=== PATIENT | female | born 1930 | race Caucasian/White ===

== ENCOUNTER 2016-03-11 09:38 | Emergency (ER) | payer OTHER, MEDICARE ==
[2016-03-11 09:51] VITALS: BMI 24.2
--- NOTE | 2016-03-11 11:12 | PDOC ---
*Physical Exam - Vital Signs Last Vital Signs Temp Pulse Resp BP Pulse Ox 97.8 F 56 L 18 143/69 100 03/11/16 09:47 03/11/16 09:47 03/11/16 09:47 03/11/16 09:47 03/11/16 09:47 - Physical Exam Comments: 03/11/16 11:11 MIDLEVEL NOTE Pt seen by Midlevel Provider under my direct supervision. Pt interviewed and examined. Ancillary studies reviewed. I agree with plan as outlined by Midlevel Provider. EKG Normal sinus rhythm 53 (sinus bradycardia), normal axis Normal AV and IV conduction time Normal QTC Otherwise normal EKG *DC/Admit/Observation/Transfer Diagnosis at time of Disposition: Internal hemorrhoid, bleeding, External hemorrhoids - Discharge Dispostion Disposition: HOME Condition at time of disposition: Good - Prescriptions Prescriptions: Hydrocortisone Acetate [Anucort-Hc] 25 mg RC TID #15 supp.rect - Referrals Referrals: Jose Altamirano MD [Staff Physician] - - Patient Instructions Printed Discharge Instructions: DI for Hemorrhoids Additional Instructions: Please use medication as prescribed for the next 5 days. Please use moist cough when cleansing self after bowel movement. Stay well- hydrated. Rest, and may use sitz bath at home
[2016-03-11] MEDS ORDERED: LIDOCAINE HCL 2% JELLY 10 ML CARTRIDGE PR ONE (12:01)
[2016-03-11] MEDS ORDERED: LIDOCAINE HCL 2% JELLY 10 ML CARTRIDGE ONE (12:03)
--- NOTE | 2016-03-11 12:14 | PDOC ---
History of Present Illness - General Chief Complaint: Diarrhea Stated Complaint: HEMORRHOIDS, DIARRHEA Time Seen by Provider: 03/11/16 11:07 History Source: Patient Exam Limitations: No Limitations - History of Present Illness Travel History: No Initial Comments: 03/11/16 12:01 85-year-old female presents with 3 episodes of diarrhea without abdominal pain, fever or chills which resolved but when she wiped herself had noted her hemorrhoids to be inflamed and painful. Patient states attempted contacting her PCP Dr. Altamirano but when he did not answer she decided come to the ER since she was and severe pain. Patient states has had hemorrhoidectomy 3 over the past 30 years performed by various surgeons. Patient states uses Preparation H with good effect but felt it wouldn't work this time and needed something stronger. Patient denies abdominal pain, bloody stool, or fever. Timing/Duration: reports: constant Quality: reports: moderate, burning Abdominal Pain Onset Location: reports: other (rectum) Pain Radiation: reports: no radiation Activities at Onset: reports: other (defecation) Aggravating Factors: improves with: Defecation Alleviating Factors: improves with: None Past History - Past Medical History Allergies/Adverse Reactions: Allergies Allergy/AdvReac Type Severity Reaction Status Date / Time Sulfa (Sulfonamide Allergy Nausea Verified 03/11/16 09:46 Antibiotics) Home Medications: Ambulatory Orders Atenolol [Tenormin -] 25 mg PO DAILY 08/02/15 Hydrocortisone Acetate [Anucort-Hc] 25 mg RC TID #15 supp.rect 03/11/16 Zolpidem Tartrate [Ambien] 10 mg PO HS 03/11/16 Anemia: No Asthma: No Cancer: Yes (Ancelmo mastectomy) Cardiac Disorders: No CVA: No COPD: No CHF: No Dementia: No Diabetes: No GI Disorders: No Disorders: No HTN: Yes Hypercholesterolemia: No Liver Disease: No Seizures: No Thyroid Disease: No Other medical history: sciatica - Surgical History Abdominal Surgery: No Appendectomy: Yes Cardiac Surgery: No Cholecystectomy: No Lung Surgery: No Neurologic Surgery: Yes (SPINAL SX) Orthopedic Surgery: No - Reproductive History Is Patient Now?: No - Immunization History Td Vaccination: No Immunization Up to Date: Yes - Psycho/Social/Smoking Cessation Hx Anxiety: No Suicidal Ideation: No Smoking Status: No Smoking History: Never smoked Have you smoked in the past 12 months: No Number of Cigarettes Smoked Daily: 0 If you are a former smoker, when did you quit?: 1973 Information on smoking cessation initiated: No Hx Alcohol Use: No Drug/Substance Use Hx: No Substance Use Type: None Hx Substance Use Treatment: No Patient Lives Alone: Yes Lives with/in: lives alone Abd/GI Specific PMHX - Complaint Specific PMHX Colitis: No GI Ulcer Disease: No Review of Systems - Review of Systems Able to Perform ROS?: Yes Constitutional: No: Symptoms Reported HEENTM: No: Symptoms Reported Respiratory: No: Symptoms reported ABD/GI: Yes: Diarrhea. No: Nausea, Abdominal cramping : No: Symptoms Reported Musculoskeletal: No: Symptoms Reported Integumentary: No: Symptoms Reported Neurological: No: Symptoms reported *Physical Exam - Vital Signs Last Vital Signs Temp Pulse Resp BP Pulse Ox 97.8 F 56 L 18 143/69 100 03/11/16 09:47 03/11/16 09:47 03/11/16 09:47 03/11/16 09:47 03/11/16 09:47 - Physical Exam General Appearance: Yes: Nourished, Appropriately Dressed. No: Apparent Distress HEENT: negative: Pale Conjunctivae Respiratory/Chest: positive: Lungs Clear, Normal Breath Sounds. negative: Respiratory Distress, Accessory Muscle Use Cardiovascular: positive: Regular Rhythm, Regular Rate (62 on monitor). negative: Murmur Vascular Pulses: Dorsalis-Pedis (R): 2+, Doralis-Pedis (L): 2+ Gastrointestinal/Abdominal: positive: Normal Bowel Sounds, Soft. negative: Distended, Tenderness Rectal Exam: positive: normal rectal tone, hemorrhoids (tender internal x 2. Skin tag externally. a small nonthrombosed 1 cm external hemorrhoid at 12:00) Integumentary: positive: Normal Color, Warm, Moist Neurologic: positive: Motor Strength 5/5 (ambulatory) Medical Decision Making - Medical Decision Making 03/11/16 12:05 Patient with recurrent painful hemorrhoids and requesting pain medication. Patient has no thrombosed or bleeding from hemorrhoids but is noted to be excoriated around the anus and hemorrhoids. Patient ordered for lidocaine rectally be discharged home with hydrocortisone acetate suppositories 5 days. *DC/Admit/Observation/Transfer Diagnosis at time of Disposition: Internal hemorrhoid, bleeding, External hemorrhoids - Discharge Dispostion Disposition: HOME Condition at time of disposition: Good - Prescriptions Prescriptions: Hydrocortisone Acetate [Anucort-Hc] 25 mg RC TID #15 supp.rect - Referrals Referrals: Jose Altamirano MD [Staff Physician] - - Patient Instructions Printed Discharge Instructions: DI for Hemorrhoids Additional Instructions: Please use medication as prescribed for the next 5 days. Please use moist cough when cleansing self after bowel movement. Stay well- hydrated. Rest, and may use sitz bath at home
[2016-03-11 13:18] VITALS: BP 117/68; PULSE 80; TEMP 98
--- NOTE | 2016-03-13 23:35 | EKG ---
Test Reason : Blood Pressure : / mmHG Vent. Rate : 053 BPM Atrial Rate : 053 BPM P-R Int : 156 ms QRS Dur : 076 ms QT Int : 434 ms P-R-T Axes : 053 019 059 degrees QTc Int : 407 ms SINUS BRADYCARDIA OTHERWISE NORMAL ECG WHEN COMPARED WITH ECG OF 02-AUG-2015 08:49, VENT. RATE HAS DECREASED BY 28 BPM Confirmed by RETA HORNE MD ([id number]) on 03/13/2016 11:34:59 PM Referred By: Confirmed By:RETA HORNE MD
== END 2016-03-11 13:19 | disposition home or self-care (01) ==
LOC: JER 09:38
DX: K64.8 Other hemorrhoids (principal); K64.4 Residual hemorrhoidal skin tags; I10 Essential (primary) hypertension; Z85.3 Personal history of malignant neoplasm of breast
CPT/HCPCS: 93005; 93010; 99284-25

== ENCOUNTER 2016-03-13 08:13 | Emergency (ER) | payer OTHER, MEDICARE ==
--- NOTE | 2016-03-13 08:42 | PDOC ---
History of Present Illness - General Chief Complaint: Hemorrhoids Stated Complaint: HEMORRHOIDS Time Seen by Provider: 03/13/16 08:27 History Source: Patient Exam Limitations: No Limitations - History of Present Illness Initial Comments: Patient is a 85 year old female with PMH of HTN, Bilateral mastectomy & sciatica who presents to ED with hemorrhoid pain. She was last seen here on Thursday and the pain was alleviated with lidocaine cream. She was sent a prescription for hydrocortisone suppositories but could not afford the medications so she did not pick it up from pharmacy. She presents today with continued pain during defecation, notably during an episode of diarrhea this morning. She also has a mild amount of bright red blood protruding from her rectum. She denies any fever, chills, abdominal pain or tenderness. Past History - Travel Traveled outside of the country in the last 30 days: No Close contact w/someone who was outside of country & ill: No - Past Medical History Allergies/Adverse Reactions: Allergies Allergy/AdvReac Type Severity Reaction Status Date / Time Sulfa (Sulfonamide Allergy Nausea Verified 03/13/16 08:50 Antibiotics) Home Medications: Ambulatory Orders Atenolol [Tenormin -] 25 mg PO DAILY 08/02/15 Zolpidem Tartrate [Ambien] 10 mg PO HS 03/11/16 Hydrocortisone Acetate 28.4 gm TP PRN PRN #1 cream..g. 03/13/16 Anemia: No Asthma: No Cancer: Yes (Ancelmo mastectomy) Cardiac Disorders: No CVA: No COPD: No CHF: No Dementia: No Diabetes: No GI Disorders: No Disorders: No HTN: Yes Hypercholesterolemia: No Liver Disease: No Seizures: No Thyroid Disease: No - Surgical History Abdominal Surgery: No Appendectomy: Yes Cardiac Surgery: No Cholecystectomy: No Lung Surgery: No Neurologic Surgery: Yes (SPINAL SX) Orthopedic Surgery: No - Immunization History Td Vaccination: No Immunization Up to Date: Yes - Psycho/Social/Smoking Cessation Hx Anxiety: No Suicidal Ideation: No Smoking Status: No Smoking History: Never smoked Have you smoked in the past 12 months: No Number of Cigarettes Smoked Daily: 0 If you are a former smoker, when did you quit?: 1974 Hx Alcohol Use: No Drug/Substance Use Hx: No Substance Use Type: None Hx Substance Use Treatment: No Review of Systems - Review of Systems Able to Perform ROS?: Yes Is the patient limited [place] proficient: No ABD/GI: Yes: Abd. Pain w/ defecation, Diarrhea All Other Systems: Reviewed and Negative *Physical Exam - Physical Exam General Appearance: Yes: Nourished, Appropriately Dressed, Apparent Distress HEENT: positive: EOMI, NATAN, Pharynx Normal Neck: positive: Trachea midline, Normal Thyroid, Supple Respiratory/Chest: positive: Lungs Clear, Normal Breath Sounds Cardiovascular: positive: Regular Rhythm, Regular Rate, S1, S2 Gastrointestinal/Abdominal: positive: Normal Bowel Sounds, Flat, Soft Rectal Exam: positive: hemorrhoids (excoriated skin around rectum, large skin tag, 1 large external hemorrhoid (nonthrombosed), internal hemorrhoids exquisitley tender to palpation) Musculoskeletal: positive: Normal Inspection Extremity: positive: Normal Inspection, Normal Range of Motion Integumentary: positive: Normal Color, Dry, Warm Neurologic: positive: Fully Oriented, Alert, Normal Mood/Affect, Motor Strength 06/20 ED Treatment Course - LABORATORY CBC & Chemistry Diagram: 03/13/16 09:10 Medical Decision Making - Medical Decision Making 03/13/16 09:01 Ordered BMP to rule out dehydration given episode of diarrhea this morning. Will apply lidocaine cream to help with pain. [facility] and informed me that her insurance does not cover suppositories but will cover hydrocortisone cream. 03/13/16 09:08 Sent hydrocortisone cream to her pharmacy. Will control patient's pain with lidocaine cream and await results of BMP. 03/13/16 11:03 BMP (-) for signs of dehydration or other lab abnormalities. Patient's pain has improved and she understands how to apply hydrocortisone cream we went to her pharmacy. I made an appointment for her with Dr Medrano on ThursdayMarch 18 at 330PM for evaluation of her hemorrhoids. Patient understands proposed course of treatment and, when offered, refused VNS help with applying her medication at home. *DC/Admit/Observation/Transfer Diagnosis at time of Disposition: Internal hemorrhoid, bleeding, External hemorrhoids - Discharge Dispostion Disposition: HOME Condition at time of disposition: Improved Admit: No - Prescriptions Prescriptions: Hydrocortisone Acetate 28.4 gm TP PRN PRN #1 cream..g. PRN Reason: Pain - Referrals Referrals: Jose Altamirano MD [Primary Care Provider] - Giorgi Medrano MD [Staff Physician] - 03/18/16 - Patient Instructions Printed Discharge Instructions: DI for Hemorrhoids Additional Instructions: I made an appointment for you at Dr Medrano's office next March 18 at 3:30PM. His office is at [address] [place] [address] on the second floor. Apply hydrocortisone cream at home after wiping your rectum after every bowel movement. If pain becomes worse or fever, chills, worsening diarrhea occur, return to ED.
[2016-03-13 08:50] VITALS: TEMP 99; BMI 23.4
[2016-03-13] MEDS ORDERED: LIDOCAINE HCL 2% JELLY (30 ML/TUBE) TP ONE (09:03)
[2016-03-13 09:41] LABS: CALCIUM 8.5 mg/dL (8.5-10.1); CREATININE 0.8 mg/dL (0.55-1.02)
[2016-03-13] MEDS ORDERED: LIDOCAINE HCL 2% JELLY (5 ML/TUBE) ONE (10:10)
[2016-03-13 13:00] VITALS: BP 140/77; PULSE 60
== END 2016-03-13 13:25 | disposition home or self-care (01) ==
LOC: JER 08:13
DX: K64.8 Other hemorrhoids (principal); K64.4 Residual hemorrhoidal skin tags; I10 Essential (primary) hypertension; Z85.3 Personal history of malignant neoplasm of breast
CPT/HCPCS: 36415; 80048; 99282-25

== ENCOUNTER 2017-01-22 10:43 | Emergency (ER) | payer OTHER, MEDICARE ==
[2017-01-22] MEDS ORDERED: IBUPROFEN 400 MG TABLET (FP) PO ONE ×2 (11:15→11:32)
[2017-01-22 11:24] VITALS: BP 102/58; PULSE 73; TEMP 98.2; BMI 24.3
--- NOTE | 2017-01-22 11:46 | PDOC ---
History of Present Illness - General Chief Complaint: Pain Stated Complaint: LEFT SHOULDER PAIN Time Seen by Provider: 01/22/17 11:15 History Source: Patient, Old Records Exam Limitations: No Limitations - History of Present Illness Initial Comments: 01/22/17 11:39 86-year-old female with past medical history notable for chronic left shoulder pain under management of orthopedist Dr. Jo presents with acute on chronic left shoulder pain. The patient has had pain for over a year which she has been intermittently receiving hydrocortisone injections of left shoulder. Last injection was in November 2016. Last week, the patient was attempting to catch 10 -15 pound box that was sliding from her door. She had caught the box but felt the strain in her left shoulder. Denies any numbness or weakness but stated that Tylenol has not been improving the pain. Because of the persistence of symptoms, patient had came into the ED for an evaluation. Past History - Past Medical History Allergies/Adverse Reactions: Allergies Allergy/AdvReac Type Severity Reaction Status Date / Time egg Allergy Verified 12/20/16 09:18 Sulfa (Sulfonamide Allergy Nausea Verified 12/20/16 09:17 Antibiotics) Home Medications: Ambulatory Orders Atenolol [Tenormin -] 25 mg PO DAILY 08/02/15 Zolpidem Tartrate [Ambien] 10 mg PO HS 03/11/16 Aspirin [ASA -] 81 mg PO DAILY 01/22/17 Benazepril HCl 5 mg PO DAILY 01/22/17 Cyanocobalamin [Vitamin B12 -] 1,000 mcg PO DAILY 01/22/17 Ibuprofen 400 mg PO Q8H PRN #15 tablet 01/22/17 Pantoprazole Sodium [Protonix] 40 mg PO DAILY #7 tablet. 01/22/17 Prednisone [Deltasone -] 20 mg PO DAILY #4 tablet 01/22/17 Anemia: No Asthma: No Cancer: Yes (Ancelmo mastectomy) Cardiac Disorders: No CVA: No COPD: No CHF: No DVT: No Dementia: No Diabetes: No GI Disorders: No Disorders: No HTN: Yes Hypercholesterolemia: No Liver Disease: No Seizures: No Thyroid Disease: No - Surgical History Abdominal Surgery: No Appendectomy: Yes Cardiac Surgery: No Cholecystectomy: No Lung Surgery: No Neurologic Surgery: Yes (SPINAL SX) Orthopedic Surgery: No - Immunization History Td Vaccination: No Immunization Up to Date: Yes - Suicide/Smoking/Psychosocial Hx Smoking Status: No Smoking History: Never smoked Have you smoked in the past 12 months: No Number of Cigarettes Smoked Daily: 0 If you are a former smoker, when did you quit?: 1973 Information on smoking cessation initiated: No Hx Alcohol Use: No Drug/Substance Use Hx: No Substance Use Type: None Hx Substance Use Treatment: No Review of Systems - Review of Systems Able to Perform ROS?: Yes Comments:: 01/22/17 11:40 GENERAL/CONSTITUTIONAL: No fever, weakness. HEAD, EYES, EARS, NOSE AND THROAT: No change in vision. No ear pain or discharge. No sore throat. CARDIOVASCULAR: No chest pain or shortness of breath. RESPIRATORY: No cough, wheezing, or hemoptysis. GASTROINTESTINAL: No abdominal pain, nausea, vomiting, diarrhea, or decreased PO intolerance. GENITOURINARY: No dysuria, frequency, or change in urination. MUSCULOSKELETAL: Left shoulder pain SKIN: No rash NEUROLOGIC: No headache, vertigo, loss of consciousness, or change in strength/ sensation. ENDOCRINE: No increased thirst. No abnormal weight change. HEMATOLOGIC/LYMPHATIC: No anemia, easy bleeding, or history of blood clots. ALLERGIC/IMMUNOLOGIC: No hives or skin allergy. *Physical Exam - Vital Signs Last Vital Signs Temp Pulse Resp BP Pulse Ox 98.2 F 73 20 102/58 99 01/22/17 10:44 01/22/17 10:44 01/22/17 10:44 01/22/17 10:44 01/22/17 10:44 - Physical Exam Comments: 01/22/17 11:46 GENERAL: Awake, alert, and fully oriented, in no acute distress. HEAD: No signs of trauma EYES: PERRLA, EOMI, sclera anicteric, conjunctiva clear ENT: Auricles normal inspection, hearing grossly normal, nares patent, oropharynx clear without exudates. NECK: Normal ROM, supple EXTREMITIES: LUE: 2+ radial pulse. Sensation intact throughout the median/radian/ulnar/ deltoid nerve. Strength intact throughout. left shoulder pair reproducible to movements and to palpation. NEUROLOGICAL: Cranial nerves II through XII grossly intact. Normal speech, normal gait SKIN: Warm, Dry, normal turgor, no rashes or lesions noted. ED Treatment Course - RADIOLOGY Radiology Studies Ordered: Category Date Time Status SHOULDER-LEFT [RAD] Stat Radiology 01/22/17 11:15 Ordered Medical Decision Making - Medical Decision Making 01/22/17 11:48 Vital Signs Temp Pulse Resp BP Pulse Ox 98.2 F 73 20 102/58 99 01/22/17 10:44 01/22/17 10:44 01/22/17 10:44 01/22/17 10:44 01/22/17 10:44 Likely acute on chronic left shoulder pain. But given the incident with the box, will obtain a left shoulder xray to rule out underlying pathology i.e. fractures. Pain control and reassess. 01/22/17 12:34 Left shoulder xray reviewed. No acute fractures. I did speak with the patient regards for potential CAT scan to picker / packer more subtle fractures. Patient reports to me that she is not a surgical candidate and this has been discussed with her orthopedist. She prefers not to have a CAT scan and will like to be seen as an outpatient by her orthopedist for further outpatient management. I found this to be reasonable. We'll discharge her on a small dose of prednisone and have her follow with her orthopedist. I assured the patient that if she is uncomfortable pain to return to the ED. I advised her that the steroids may give her acid reflux so she should be on Protonix in the duration. Patient verbalized understanding and agrees with plan. I discussed the physical exam findings, ancillary test results and final diagnoses with the patient. I answered all of the patient's questions. The patient was satisfied with the care received and felt comfortable with the discharge plan and treatment plan. The patient will call their primary care physician within 24 hours to arrange follow-up and will return to the Emergency Department with any new, persistant or worsening symptoms. *DC/Admit/Observation/Transfer Diagnosis at time of Disposition: Shoulder pain, left Qualifiers: Chronicity: chronic Qualified Code(s): M25.512 - Pain in left shoulder; G89.29 - Other chronic pain; G89.29 - Other chronic pain - Discharge Dispostion Disposition: HOME Condition at time of disposition: Stable Admit: No - Prescriptions Prescriptions: Ibuprofen 400 mg PO Q8H PRN #15 tablet PRN Reason: Shoulder Pain Pantoprazole Sodium [Protonix] 40 mg PO DAILY #7 tablet. Prednisone [Deltasone -] 20 mg PO DAILY #4 tablet - Referrals Referrals: Marquise Jo MD [Staff Physician] - - Patient Instructions Printed Discharge Instructions: DI for Shoulder Pain Additional Instructions: Wear the sling very intermittently. You do not need to wear it all the time. Take 400 mg ibuprofen every 8 hours as needed for pain. Continue on 20 mg prednisone until completion. Follow up with Dr. Jo. Call to schedule an appointment. - Post Discharge Activity
[2017-01-22] MEDS ORDERED: predniSONE 20 MG TABLET (UD) PO ONE (12:14)
[2017-01-22] MEDS ORDERED: PANTOPRAZOLE 40 MG TABLET (FP) PO ONE (12:15)
[2017-01-22] MEDS ORDERED: PANTOPRAZOLE 40 MG TABLET (FP) ONE (12:18)
[2017-01-22] MEDS ORDERED: predniSONE 20 MG TABLET (UD) ONE (12:18)
== END 2017-01-22 12:43 | disposition home or self-care (01) ==
LOC: FER 10:43
DX: M25.512 Pain in left shoulder (principal); G89.29 Other chronic pain; I10 Essential (primary) hypertension
CPT/HCPCS: 73030-TC-LT; 99281-25

== ENCOUNTER 2017-02-14 07:26 | Emergency (ER) | payer OTHER, MEDICARE ==
[2017-02-14 07:45] VITALS: BP 127/62; PULSE 63; TEMP 98.8; BMI 23.9
--- NOTE | 2017-02-14 07:55 | PDOC ---
Attending Attestation - Resident Resident Name: Christofer Bucio - HPI HPI: 02/14/17 09:27 pt presents to the ED complaining of itchy dry skin to her face that started yesterday. Patient has tried benadryl and witch jaime for her symptoms without relief. Denies fever, rash in other areas of the body or sick contacts. - Physicial Exam PE: 02/14/17 09:31 Agree with resident's exam. Patient has dry, scaly patches of skin on the face without erythema or vesicles. Rash appears most consistent with eczema. - Medical Decision Making 02/14/17 09:32 Pt presents to the ED complaining of facial rash. Will treat wit hydrocortisone cream and atarax for itch. Will discharge home.
--- NOTE | 2017-02-14 08:21 | PDOC ---
History of Present Illness - General Chief Complaint: Rash Stated Complaint: RASH Time Seen by Provider: 02/14/17 07:52 - History of Present Illness Initial Comments: 02/14/17 08:13 Pt is an 86y/o F with extensive PMH who presents with facial rash since yesterday afternoon at 3pm. Pt states that she developed an itching facial rash on both cheeks and around the mouth, which has been constant. Pt denies throat swelling, difficulty breathing, difficulty swallowing, change in voice, ear pain , change in hearing, nasal congestion. Pt has been taking Benadryl every 4 hours since the itching started (last dose 8pm last night) with no resolution of symptoms. She has also tried witch jaime, which did not help. Pt states the rash has been slowly extending upward from the left cheek toward the inside of the left eye, which worried her and prompted her to come to the ED. Pt admits to using oxymetazoline nasal spray yesterday afternoon. She has never used this spray before. At this time, pt complains of dry mouth and itching of the face. No other complaints. Pt is stable, afebrile, and in NAD. Note that pt has seen an frog farmer in the past (Dr. Prasad, now retired) who told her she is allergic to Sulfa. PMH: HTN, HLD, Asthma, Total hip replacement (2014), breast CA s/p double mastectomy Past History - Past Medical History Allergies/Adverse Reactions: Allergies Allergy/AdvReac Type Severity Reaction Status Date / Time egg Allergy Verified 02/14/17 07:34 Sulfa (Sulfonamide Allergy Nausea Verified 02/14/17 07:34 Antibiotics) Home Medications: Ambulatory Orders Atenolol [Tenormin -] 25 mg PO DAILY 08/02/15 Zolpidem Tartrate [Ambien] 10 mg PO HS 03/11/16 Aspirin [ASA -] 81 mg PO DAILY 01/22/17 Benazepril HCl 5 mg PO DAILY 01/22/17 Cyanocobalamin [Vitamin B12 -] 1,000 mcg PO DAILY 01/22/17 Ibuprofen 400 mg PO Q8H PRN #15 tablet 01/22/17 Pantoprazole Sodium [Protonix] 40 mg PO DAILY #7 tablet. 01/22/17 Prednisone [Deltasone -] 20 mg PO DAILY #4 tablet 01/22/17 Hydrocortisone [Anti-Itch] 28 gm TP Q12H PRN #1 cream..g. 02/14/17 Anemia: No Asthma: No Cancer: Yes (Ancelmo mastectomy) Cardiac Disorders: No CVA: No COPD: No CHF: No DVT: No Dementia: No Diabetes: No GI Disorders: No Disorders: No HTN: Yes Hypercholesterolemia: No Liver Disease: No Seizures: No Thyroid Disease: No - Surgical History Abdominal Surgery: No Appendectomy: Yes Cardiac Surgery: No Cholecystectomy: No Lung Surgery: No Neurologic Surgery: Yes (SPINAL SX) Orthopedic Surgery: No - Immunization History Td Vaccination: No Immunization Up to Date: Yes - Suicide/Smoking/Psychosocial Hx Smoking Status: No Smoking History: Never smoked Have you smoked in the past 12 months: No Number of Cigarettes Smoked Daily: 0 If you are a former smoker, when did you quit?: 1973 Information on smoking cessation initiated: No Hx Alcohol Use: No Drug/Substance Use Hx: No Substance Use Type: None Hx Substance Use Treatment: No *Physical Exam - Vital Signs Last Vital Signs Temp Pulse Resp BP Pulse Ox 98.8 F 63 18 127/62 100 02/14/17 07:31 02/14/17 07:31 02/14/17 07:31 02/14/17 07:31 02/14/17 07:31 - Physical Exam General Appearance: Yes: Nourished, Appropriately Dressed. No: Apparent Distress HEENT: positive: EOMI, NATAN, Normal ENT Inspection, Normal Voice, Hearing Grossly Normal, Lesions. negative: Photophobia, Muffled/Hoarse voice, Tonsillar Erythema, Nasal Congestion, Rhinorrhea, Sinus Tenderness, Hearing Decreased, TM Bulging, TM Dull, TM Erythema, Excessive drooling, Thrush Neck: positive: Trachea midline, Normal Thyroid, Supple. negative: Tender, Rigid, Lymphadenopathy (R), Lymphadenopathy (L) Respiratory/Chest: positive: Lungs Clear, Normal Breath Sounds. negative: Chest Tender, Respiratory Distress, Accessory Muscle Use, Rapid RR, Crackles, Rales, Stridor, Wheezing, Dullness, Plerual Rub Cardiovascular: positive: Regular Rhythm, Regular Rate, S1, S2. negative: Edema , JVD, Murmur Gastrointestinal/Abdominal: positive: Normal Bowel Sounds, Flat, Soft. negative : Tender, Organomegaly Musculoskeletal: positive: Normal Inspection Extremity: positive: Normal Capillary Refill, Normal Inspection Integumentary: positive: Erythema (bilateral cheeks, chin, extending upward toward medial aspect of the L eye) Neurologic: positive: subgrade tester II-XII NML intact, Fully Oriented, Alert, Normal Mood/ Affect, Normal Response Medical Decision Making - Medical Decision Making 02/14/17 08:25 Pt is an 86y/o F with PMH Asthma, sulfa and egg allergies who presents to ED with eczematous rash beginning at 3pm yesterday. Symptoms have not remitted despite benadryl. Plan -hydrocortisone cream -atarax PO 02/14/17 09:17 Pt stable for discharge with Rx for hydrocortisone cream *DC/Admit/Observation/Transfer Diagnosis at time of Disposition: Pruritic rash - Discharge Dispostion Disposition: HOME Condition at time of disposition: Stable - Prescriptions Prescriptions: Hydrocortisone [Anti-Itch] 28 gm TP Q12H PRN #1 cream..g. PRN Reason: Dry Skin - Referrals Referrals: Jose Altamirano MD [Primary Care Provider] - - Patient Instructions Printed Discharge Instructions: DI for Rash Additional Instructions: Please follow up with your primary doctor within 1 week. Please take all of your prescription medications as directed. If you develop new symptoms or if your symptoms get worse, please return to the emergency department. - Post Discharge Activity
[2017-02-14] MEDS ORDERED: hydrOXYzine HCL 25 MG TABLET (FP) PO ONE (08:48)
[2017-02-14] MEDS ORDERED: HYDROCORTISONE 0.5% TOPICAL CREAM 30 GM TUBE TP ONE (08:48)
== END 2017-02-14 09:48 | disposition home or self-care (01) ==
LOC: JER 07:26
DX: L30.8 Other specified dermatitis (principal); I10 Essential (primary) hypertension; E78.00 Pure hypercholesterolemia, unspecified; J45.909 Unspecified asthma, uncomplicated; Z85.3 Personal history of malignant neoplasm of breast; Z90.13 Acquired absence of bilateral breasts and nipples; Z96.649 Presence of unspecified artificial hip joint
CPT/HCPCS: 99281-25

== ENCOUNTER 2017-02-25 16:00 | Inpatient (IN) | payer OTHER, MEDICARE ==
--- NOTE | 2017-02-25 17:02 | PDOC ---
History of Present Illness - General Chief Complaint: Weakness Stated Complaint: WEAKNESS Time Seen by Provider: 02/25/17 16:51 - History of Present Illness Initial Comments: 02/25/17 17:15 The patient is an 86 year old female with a history of HTN, appendectomy, breast ca s/p mastectomy who presents for evaluation of suprapubic abdominal pain. The patient reports a 4-5 day history of burning suprapubic abdominal pain. She states that she was placed on cipro by her primary Dr. Altamirano and has been taking the medication with no improvement in her symptoms. She presented to the ED for evaluation at the recommendation of Dr. Altamirano for continued symptoms. She denies any burning or pain on urination and notes that she has had normal bowel movements with her last bowel movement 1 day ago. She denies fevers, chills, SOB, chest pain, nausea, or vomiting. She otherwise only notes some mild generalized weakness. Past History - Past Medical History Allergies/Adverse Reactions: Allergies Allergy/AdvReac Type Severity Reaction Status Date / Time egg Allergy Verified 02/25/17 17:07 Sulfa (Sulfonamide Allergy Nausea Verified 02/25/17 17:07 Antibiotics) Home Medications: Ambulatory Orders Atenolol [Tenormin -] 25 mg PO DAILY 08/02/15 Zolpidem Tartrate [Ambien] 10 mg PO HS 03/11/16 Aspirin [ASA -] 81 mg PO DAILY 01/22/17 Benazepril HCl 5 mg PO DAILY 01/22/17 Cyanocobalamin [Vitamin B12 -] 1,000 mcg PO DAILY 01/22/17 Anemia: No Asthma: No Cancer: Yes (Ancelmo mastectomy) Cardiac Disorders: No CVA: No COPD: No CHF: No DVT: No Dementia: No Diabetes: No GI Disorders: No Disorders: No HTN: Yes Hypercholesterolemia: No Liver Disease: No Seizures: No Thyroid Disease: No - Surgical History Abdominal Surgery: No Appendectomy: Yes Cardiac Surgery: No Cholecystectomy: No Lung Surgery: No Neurologic Surgery: Yes (SPINAL SX) Orthopedic Surgery: No - Immunization History Td Vaccination: No Immunization Up to Date: Yes - Suicide/Smoking/Psychosocial Hx Smoking Status: No Smoking History: Never smoked Have you smoked in the past 12 months: No Number of Cigarettes Smoked Daily: 0 If you are a former smoker, when did you quit?: 1974 Hx Alcohol Use: No Drug/Substance Use Hx: No Substance Use Type: None Hx Substance Use Treatment: No Review of Systems - Review of Systems Comments:: 02/25/17 17:19 Constitutional: Generalized weakness. No fevers, chills, malaise HEENT: No Rhinorrhea, nasal congestion, visual changes Cardiovascular: No chest pain, syncope, palpitations, lightheadedness Respiratory: No Cough, SOB, Hemoptysis, Gastrointestinal: Suprapubic abdominal pain. No Nausea, Vomiting, Constipation , Diarrhea, Melena Genitourinary: No Dysuria, Frequency, Urgency, Hesitancy, Hematuria, Flank pain Musculoskeletal: No Myalgia, arthralgia Skin: No rashes, bruising, pallor Neurologic: No Headache, Dizziness, Numbness, Weakness, or Tingling Psychiatric: No Hallucinations. No SI or HI *Physical Exam - Physical Exam Comments: 02/25/17 17:20 General Appearance: Nourished. No Apparent Distress HEENT: EOMI, NATAN. No Pharyngeal Erythema, Tonsillar Exudate, Tonsillar Erythema Neck: No Cervical Lymphadenopathy Respiratory/Chest: Lungs Clear, Normal Breath Sounds. No Crackles, Rales, Rhonchi, Wheezing Cardiovascular: Regular Rhythm, Regular Rate. No Murmur, Gallops, Rubs Gastrointestinal/Abdominal: Normal Bowel Sounds, Soft. Suprapubic tenderness to palpation. No Guarding, Rebound, Musculoskeletal: No CVA Tenderness Extremity: Normal Capillary Refill Integumentary: Normal Color, Dry, Warm Neurologic: grill attendant II-XII NML intact, Fully Oriented, Alert, Normal Mood/Affect, Normal Response, ED Treatment Course - LABORATORY CBC & Chemistry Diagram: 02/25/17 17:30 02/25/17 17:30 Medical Decision Making - Medical Decision Making 02/25/17 17:21 The patient is an 86 year old female with a history of HTN, appendectomy, breast ca s/p mastectomy who presents for evaluation of suprapubic abdominal pain. Differential includes but is not limited to: UTI, pyelonephritis, other infectious, metabolic derangement. Given her history of suprapubic tenderness, it is likely her symptoms are due to a UTI or cystitis that is unresponsive to outpatient therapy. We will obtain a cbc, cmp, lipase, ua, urine cultures to evaluate further and continue to monitor and reassess. 02/25/17 18:53 cbc is unremarkable. cmp demonstrates a hyponatremia to 127 with a creatitine of 4.0 and potassium of 5.5 consistent with ANGI. We believe that she requires admission for further management at this time. We discussed the case with the hospitalist team who accepted the patient for admission and requested guidry placement. *DC/Admit/Observation/Transfer Diagnosis at time of Disposition: Hyponatremia, ANGI (acute kidney injury) - Discharge Dispostion Condition at time of disposition: Guarded Admit: Yes - Referrals - Patient Instructions - Post Discharge Activity
[2017-02-25] MEDS ORDERED: ACETAMINOPHEN 1000 MG/100 ML VIAL (NON FORMULARY) IVPB ONE (17:21)
--- NOTE | 2017-02-25 17:29 | PDOC ---
Attending Attestation - Resident Resident Name: Santy Coulter - ED Attending Attestation I have performed the following: I have examined & evaluated the patient, The case was reviewed & discussed with the resident, I agree w/resident's findings & plan, Exceptions are as noted - HPI HPI: 02/25/17 17:23 "The patient is a 86 year old female with a significant past medical history of hypertension and breast cancer(s/p bilateral mastectomy), who presents to the emergency department with suprapubic abdominal pain for approximately 4-5 days. Since then, patient reports contacting her PCP Dr. Altamirano, who placed her on Ciprofloxacin for a UTI, with minimal relief of symptoms despite completing her course. Today, patient has noted associated suprapubic burning and generalized weakness, and Dr. Altamirano instructed her to come to the ED. Patient denies any associated chills, headache, or dizziness. She denies any hematuria, frequency, urgency, or flank pain. She denies any nausea, vomiting, diarrhea, or constipation. She denies any recent travel or sick contacts. Allergies: Sulfa(Sulfonamide antibiotics) Past Surgical History: Appendectomy, Bilateral mastectomy Social History: Non smoker. No ETOH or recreational drug use. PCP: Dr. Altamirano " - Physicial Exam PE: 02/25/17 17:25 "GENERAL: Awake, alert, and fully oriented, in no acute distress HEAD: No signs of trauma EYES: PERRLA, EOMI, sclera anicteric, conjunctiva clear ENT: Auricles normal inspection, hearing grossly normal, nares patent, oropharynx clear without exudates. Moist mucosa NECK: Nontender, no stepoffs, Normal ROM, supple, no lymphadenopathy, JVD, or masses LUNGS: Breath sounds equal, clear to auscultation bilaterally. No wheezes, and no crackles HEART: Regular rate and rhythm, normal S1 and S2, no murmurs, rubs or gallops ABDOMEN: + suprapubic TTP, no rebound/guarding, no distention EXTREMITIES: Normal range of motion, no edema. No clubbing or cyanosis. No cords, erythema, or tenderness NEUROLOGICAL: Cranial nerves II through XII intact. 5/5 strength and sensation in all extremities, Normal speech, normal gait SKIN: Warm, Dry, normal turgor, no rashes or lesions noted. " - Medical Decision Making 02/25/17 17:28 86 F with suprapubic pain x 6 days. Possible cystitis. Also consider intraabdominal process like diverticulitis vs colitis. Pt has had prior appy. - Labs, UA, UCx - Consider imaging if UA is negative for UTI 02/25/17 18:36 CBC,CMP WBC 5.8 K/mm3 (4.0-10.0) 02/25/17 17:30 RBC 3.59 M/mm3 (3.60-5.2) L 02/25/17 17:30 Hgb 10.2 GM/dL (10.7-15.3) L 02/25/17 17:30 Hct 31.1 % (32.4-45.2) L 02/25/17 17:30 MCV 86.8 fl (80-96) 02/25/17 17:30 MCH 28.5 pg (25.7-33.7) 02/25/17 17:30 MCHC 32.9 g/dl (32.0-36.0) 02/25/17 17:30 RDW 13.7 % (11.6-15.6) 02/25/17 17:30 Plt Count 291 K/MM3 (134-434) 02/25/17 17:30 MPV 7.6 fl (7.5-11.1) 02/25/17 17:30 Neutrophils % 63.4 % (42.8-82.8) 02/25/17 17:30 Lymphocytes % 22.0 % (8-40) D 02/25/17 17:30 Monocytes % 11.7 % (3.8-10.2) H 02/25/17 17:30 Eosinophils % 2.0 % (0-4.5) D 02/25/17 17:30 Basophils % 0.9 % (0-2.0) D 02/25/17 17:30 Sodium 127 mmol/L (136-145) L D 02/25/17 17:30 Potassium 5.5 mmol/L (3.5-5.1) H 02/25/17 17:30 Chloride 96 mmol/L (98-107) L 02/25/17 17:30 Carbon Dioxide 23 mmol/L (21-32) 02/25/17 17:30 Anion Gap 8 (8-16) 02/25/17 17:30 BUN 26 mg/dL (7-18) H D 02/25/17 17:30 Creatinine 4.0 mg/dL (0.55-1.02) H D 02/25/17 17:30 Creat Clearance w eGFR 10.62 (>60) 02/25/17 17:30 Random Glucose 93 mg/dL (74-106) 02/25/17 17:30 Calcium 9.2 mg/dL (8.5-10.1) 02/25/17 17:30 Total Bilirubin 0.3 mg/dL (0.2-1.0) 02/25/17 17:30 AST 15 U/L (15-37) 02/25/17 17:30 ALT 11 U/L (12-78) L D 02/25/17 17:30 Alkaline Phosphatase 78 U/L (45-117) 02/25/17 17:30 Total Protein 6.6 g/dl (6.4-8.2) 02/25/17 17:30 Albumin 3.4 g/dl (3.4-5.0) 02/25/17 17:30 Lipase 423 U/L (73-393) H 02/25/17 17:30 UA with negative LE and negative nitrites. Labs notable for ANGI with Cr 4.0. Pt also hyponatremic to 127. Will admit for further work up and treatment of ANGI and hyponatremia. Swati ordered. Pt signed out to hospitalist.
[2017-02-25 17:37] LABS: BASO % 0.9 % (0-2.0); HEMATOCRIT 31.1 % (32.4-45.2); HEMOGLOBIN 10.2 GM/dL (10.7-15.3); MCH 28.5 pg (25.7-33.7); MCHC 32.9 g/dl (32.0-36.0); MEAN CELL VOLUME 86.8 fl (80-96); MEAN PLT VOLUME 7.6 fl (7.5-11.1); MONO % 11.7 % (3.8-10.2); NEUT % 63.4 % (42.8-82.8); PLATELET COUNT 291 K/MM3 (134-434); RBC 3.59 M/mm3 (3.60-5.2); RDW 13.7 % (11.6-15.6); WHITE BLOOD COUNT 5.8 K/mm3 (4.0-10.0)
[2017-02-25] MEDS ORDERED: ACETAMINOPHEN INJECTION 100 ML IVPB ONE (18:04)
[2017-02-25 18:13] LABS: ALBUMIN 3.4 g/dl (3.4-5.0); ANION GAP 8 (8-16); BLOOD UREA NITROGEN 26 mg/dL (7-18); CALCIUM 9.2 mg/dL (8.5-10.1); CHLORIDE 96 mmol/L (98-107); CO2 23 mmol/L (21-32); GLUCOSE,RANDOM 93 mg/dL (74-106); SODIUM 127 mmol/L (136-145)
[2017-02-25 18:18] LABS: URINE APPEARANCE SLCLOUDY; URINE BILIRUBIN NEGATIVE (NEGATIVE); URINE BLOOD NEGATIVE (NEGATIVE); URINE COLOR YELLOW; URINE GLUCOSE (UA) NEGATIVE (NEGATIVE); URINE KETONE NEGATIVE (NEGATIVE); URINE LEUK ESTERASE NEGATIVE (NEGATIVE); URINE NITRITE NEGATIVE (NEGATIVE); URINE PROTEIN NEGATIVE (NEGATIVE); URINE UROBILINOGEN NEGATIVE mg/dL (0.2-1.0)
[2017-02-25 18:20] LABS: ALK PHOS 78 U/L (45-117); BILIRUBIN,TOTAL 0.3 mg/dL (0.2-1.0); LIPASE 423 U/L (73-393); SGPT/ALT 11 U/L (12-78); TOT PROT 6.6 g/dl (6.4-8.2)
[2017-02-25 18:21] LABS: POTASSIUM 5.5 mmol/L (3.5-5.1); SGOT/AST 15 U/L (15-37)
--- NOTE | 2017-02-25 19:36 | HP ---
Admitting History and Physical - Primary Care Physician PCP: Jose Altamirano - Admission Chief Complaint: Suprapubic Abdominal Pain, Generalized Weakness History of Present Illness: This is a 86 y/o woman with a PMHx of: HTN, HLD, Breast Ca (bilateral mastectomy , Chemo, 1997), Asthma, Diverticulosis. Who presents to the ED with suprapubic abdominal pain, generalized weakness, decreased appetite 4-5 days. Patient reports being started on Cipro by her PMD- with no improvement. Patient reports nausea, dizziness. Patient denies fever, chills, cough, SOB, CP, palpitations, vomiting, diarrhea, dysuria. History Source: Patient Limitations to Obtaining History: No Limitations - Past Medical History Cardiovascular: Yes: HTN, Hyperlipdemia Pulmonary: Yes: Asthma, Bronchitis Gastrointestinal: Yes: Diverticulosis Infectious Disease: Yes: Other (Hx of recurrent URI's) Psych: Yes: Anxiety Musculoskeletal: Yes: Osteoarthritis, Other (sciatica) Rheumatology: Yes: Other (soft tissue aches & pains) ENT: Yes: Sinusitis - Past Surgical History Past Surgical History: Yes: Joint Replacement, Mastectomy (bilat x many yrs ago) - Smoking History Smoking history: Never smoked Have you smoked in the past 12 months: No Aproximately how many cigarettes per day: 0 If you are a former smoker, when did you quit?: 1973 - Alcohol/Substance Use Hx Alcohol Use: No History of Substance Use: reports: None - Social History ADL: Independent History of Recent Travel: No Home Medications - Allergies Allergies/Adverse Reactions: Allergies Allergy/AdvReac Type Severity Reaction Status Date / Time egg Allergy Verified 02/25/17 17:07 Sulfa (Sulfonamide Allergy Nausea Verified 02/25/17 17:07 Antibiotics) - Home Medications Home Medications: Ambulatory Orders Atenolol [Tenormin -] 25 mg PO DAILY 08/02/15 Zolpidem Tartrate [Ambien] 10 mg PO HS 03/11/16 Aspirin [ASA -] 81 mg PO DAILY 01/22/17 Benazepril HCl 5 mg PO DAILY 01/22/17 Cyanocobalamin [Vitamin B12 -] 1,000 mcg PO DAILY 01/22/17 Family Disease History - Family Disease History Family History: Denies Review of Systems - Review of Systems Constitutional: reports: Loss of Appetite, Malaise, Weakness Eyes: reports: No Symptoms HENT: reports: No Symptoms Neck: reports: No Symptoms Cardiovascular: reports: No Symptoms Respiratory: reports: No Symptoms Gastrointestinal: reports: Abdominal Pain (suprapubic) Genitourinary: reports: No Symptoms Breasts: reports: No Symptoms Reported Musculoskeletal: reports: No Symptoms Integumentary: reports: No Symptoms Neurological: reports: Dizziness, Weakness Endocrine: reports: No Symptoms Hematology/Lymphatic: reports: No Symptoms Psychiatric: reports: No Symptoms Pain Intensity: 6 Physical Examination Vital Signs: Vital Signs Temperature 97.3 F L 02/25/17 17:09 Pulse Rate 86 02/25/17 18:13 Respiratory Rate 15 02/25/17 18:13 Blood Pressure 122/77 02/25/17 18:13 O2 Sat by Pulse Oximetry (%) 98 02/25/17 18:13 Constitutional: Yes: Mild Distress, Thin Eyes: Yes: WNL, Conjunctiva Clear, EOM Intact, PERRL HENT: Yes: Atraumatic, Normocephalic, Other (Dry mucousa) Neck: Yes: WNL, Supple, Trachea Midline Cardiovascular: Yes: WNL, Regular Rate and Rhythm, S1, S2 Respiratory: Yes: WNL, Regular, CTA Bilaterally Gastrointestinal: Yes: Tenderness (supra pubic) Renal/: Yes: WNL Breast(s): Yes: WNL Musculoskeletal: Yes: Back Pain, Muscle Pain Extremities: Yes: WNL Edema: No Peripheral Pulses WNL: Yes Integumentary: Yes: WNL Neurological: Yes: WNL, Alert, Oriented, Cran Nerves II-XII Intact ...Motor Strength: WNL Psychiatric: Yes: WNL, Alert, Oriented Labs: CBC, BMP 02/25/17 17:30 02/25/17 17:30 Laboratory Results - last 24 hr 02/25/17 02/25/17 02/25/17 17:30 17:30 17:48 WBC 5.8 RBC 3.59 L Hgb 10.2 L Hct 31.1 L MCV 86.8 MCH 28.5 MCHC 32.9 RDW 13.7 Plt Count 291 MPV 7.6 Neutrophils % 63.4 Lymphocytes % 22.0 D Monocytes % 11.7 H Eosinophils % 2.0 D Basophils % 0.9 D Sodium 127 L D Potassium 5.5 H Chloride 96 L Carbon Dioxide 23 Anion Gap 8 BUN 26 H D Creatinine 4.0 H D Creat Clearance w eGFR 10.62 Random Glucose 93 Calcium 9.2 Total Bilirubin 0.3 AST 15 ALT 11 L D Alkaline Phosphatase 78 Total Protein 6.6 Albumin 3.4 Lipase 423 H Urine Color Yellow Urine Appearance Slcloudy Urine pH 5.0 Ur Specific Bone Gap 1.013 Urine Protein Negative Urine Glucose (UA) Negative Urine Ketones Negative Urine Blood Negative Urine Nitrite Negative Urine Bilirubin Negative Urine Urobilinogen Negative Ur Leukocyte Esterase Negative 02/26/17 03:00 WBC RBC Hgb Hct MCV MCH MCHC RDW Plt Count MPV Neutrophils % Lymphocytes % Monocytes % Eosinophils % Basophils % Sodium 132 L Potassium 4.9 Chloride 102 Carbon Dioxide 20 L Anion Gap 10 BUN 29 H Creatinine 3.6 H Creat Clearance w eGFR Random Glucose 86 Calcium 8.5 Total Bilirubin AST ALT Alkaline Phosphatase Total Protein Albumin Lipase Urine Color Urine Appearance Urine pH Ur Specific Bone Gap Urine Protein Urine Glucose (UA) Urine Ketones Urine Blood Urine Nitrite Urine Bilirubin Urine Urobilinogen Ur Leukocyte Esterase Intake & Output 02/23/17 02/24/17 02/25/17 02/26/17 23:59 23:59 23:59 23:59 Intake Total 700 200 Balance 700 200 Weight 55.338 kg Imaging - Results Chest X-ray: Report Reviewed, Image Reviewed Cat Scan: Pending EKG: Image Reviewed (NSR no ST or TWI, no peaked Ts) Problem List - Problems (1) ANGI (acute kidney injury) Code(s): N17.9 - ACUTE KIDNEY FAILURE, UNSPECIFIED (2) Hyperkalemia Code(s): E87.5 - HYPERKALEMIA (3) Abdominal pain Code(s): R10.9 - UNSPECIFIED ABDOMINAL PAIN Qualifiers: Abdominal location: upper abdomen, unspecified Qualified Code(s): R10.10 - Upper abdominal pain, unspecified (4) Hypertension Code(s): I10 - ESSENTIAL (PRIMARY) HYPERTENSION Qualifiers: Hypertension type: essential hypertension Qualified Code(s): I10 - Essential (primary) hypertension (5) Asthma Code(s): J45.909 - UNSPECIFIED ASTHMA, UNCOMPLICATED Qualifiers: Asthma severity: mild intermittent Asthma complication type: uncomplicated (6) DVT prophylaxis Code(s): [id number] - Assessment/Plan 86 y/o woman with a PMHx of: HTN, HLD, Breast Ca (mastectomy, chemo, 88), Asthma , OA. Diverticulitis. Admitted for ANGI, Hyperkalemia Plan: 1 ANGI - Likely secondary to Dehydration - NS bolus started, will continue gentle IVF - Appreciate Nephrology Consult - Monitor BMP - Avoid Nephrotoxins 2. Hyperkalemia - Likely secondary to ANGI - Kayexelate x1 now - Repeat BMP in 4hrs 3. Abdominal Pain - CTAP-pending - Monitor BMP - NPO 3. Hypertension - Monitor BP - Continue Tenormin with parameters, hold Benzapril secondary ANGI 4. FEN - NS@42cc/hr - K- corrected monitor -NPO 5. DVT Prophylaxis - OOB - SCDs - Heparin SQ Code Status: Full Code Dispo: Requires Inpatient Care Visit type - Emergency Visit Emergency Visit: Yes ED Registration Date: 02/25/17 Care time: The patient presented to the Emergency Department on the above date and was hospitalized for further evaluation of their emergent condition. - New Patient This patient is new to me today: Yes Date on this admission: 02/25/17 - Critical Care Critical Care patient: No
[2017-02-25] MEDS ORDERED: SODIUM CHLORIDE 500 ML IV STA (19:40)
[2017-02-25] MEDS ORDERED: SODIUM POLYSTYRENE SULFONATE 15 GM/60 ML BOTTLE PO ONE (22:28)
[2017-02-26 00:21] VITALS: BMI 21.6
[2017-02-26 03:38] LABS: ANION GAP 10 (8-16); BLOOD UREA NITROGEN 29 mg/dL (7-18); CALCIUM 8.5 mg/dL (8.5-10.1); CHLORIDE 102 mmol/L (98-107); CO2 20 mmol/L (21-32); CREATININE 3.6 mg/dL (0.55-1.02); GLUCOSE,RANDOM 86 mg/dL (74-106); POTASSIUM 4.9 mmol/L (3.5-5.1); SODIUM 132 mmol/L (136-145)
[2017-02-26] MEDS ORDERED: SODIUM CHLORIDE 1,000 ML IV SCH (07:00)
--- NOTE | 2017-02-26 08:24 | PN ---
Progress Note (short form) - Note Progress Note: Pt seen/ examined. comfortable sitting in chair wants to eat anxious passing urine denies pain. afebrile Vital Signs Temp 98.9 F 02/26/17 05:00 Pulse 83 02/26/17 05:00 Resp 18 02/26/17 05:00 BP 119/59 02/26/17 05:00 Pulse Ox 98 02/25/17 18:13 Intake & Output 02/25/17 02/25/17 02/26/17 11:59 23:59 11:59 Intake Total 700 200 Balance 700 200 Weight 122 lb Intake: IV 500 Normal Saline - 500 ml @ 500 500 mls/hr IV ASDIR STA Rx#:[id number] Oral 200 200 Other: Voiding Method Toilet Bowel Movement Yes Yes # Bowel Movements 1 Height 5 ft 3 in Body Mass Index (BMI) 21.6 Weight Measurement Method Est/Stated by Patient Active Medications Aspirin (Asa -) 81 mg PO DAILY ADALI Atenolol (Tenormin -) 25 mg PO DAILY ADALI Sodium Chloride (Normal Saline -) 1,000 mls @ 42 mls/hr IV ASDIR ADALI ct abd - noted physical exam awake and comfortable--- sitting in chair Neck --supple Lungs--- clear CVS--- S1-S2 regular Abdomen--- soft, nontender bowel sounds present Extremities--no edema Neuro--alert and oriented 3 Psych--- mild anxiety present Assessment and plan This is a 86 y/o woman with a PMHx of: HTN, HLD, Breast Ca (bilateral mastectomy , Chemo, 1997), Asthma, Diverticulosis. Who presents to the ED with suprapubic abdominal pain, generalized weakness, decreased appetite 4-5 days. Patient reports being started on Cipro by her PMD- with no improvement. Patient reports nausea, dizziness. Patient denies fever, chills, cough, SOB, CP, palpitations, vomiting, diarrhea, dysuria. admitted due to abdominal pain--- CT abdomen unremarkable Acute renal failure Continue IV fluids--increase date Start on liquid diet--advance as tolerated Follow-up labs--order Renal to follow Will follow Discussed with nursing staff. Problem List - Problems (1) ANGI (acute kidney injury) Code(s): N17.9 - ACUTE KIDNEY FAILURE, UNSPECIFIED (2) Hyponatremia Code(s): E87.1 - HYPO-OSMOLALITY AND HYPONATREMIA (3) Abdominal pain Code(s): R10.9 - UNSPECIFIED ABDOMINAL PAIN Qualifiers: Abdominal location: upper abdomen, unspecified Qualified Code(s): R10.10 - Upper abdominal pain, unspecified
[2017-02-26 08:32] LABS: BASO % 0.6 % (0-2.0); EOS % 2.5 % (0-4.5); HEMATOCRIT 33.8 % (32.4-45.2); HEMOGLOBIN 10.9 GM/dL (10.7-15.3); LYMPH % 16.4 % (8-40); MCH 28.2 pg (25.7-33.7); MCHC 32.3 g/dl (32.0-36.0); MEAN CELL VOLUME 87.4 fl (80-96); MEAN PLT VOLUME 7.9 fl (7.5-11.1); MONO % 11.4 % (3.8-10.2); NEUT % 69.1 % (42.8-82.8); PLATELET COUNT 297 K/MM3 (134-434); RBC 3.87 M/mm3 (3.60-5.2); RDW 13.7 % (11.6-15.6); WHITE BLOOD COUNT 6.5 K/mm3 (4.0-10.0)
[2017-02-26 08:52] LABS: CHLORIDE 102 mmol/L (98-107); SODIUM 132 mmol/L (136-145)
--- NOTE | 2017-02-26 09:11 | EKG ---
Test Reason : Blood Pressure : / mmHG Vent. Rate : 064 BPM Atrial Rate : 064 BPM P-R Int : 178 ms QRS Dur : 070 ms QT Int : 408 ms P-R-T Axes : 068 032 056 degrees QTc Int : 420 ms NORMAL SINUS RHYTHM NORMAL ECG WHEN COMPARED WITH ECG OF 11-MAR-2016 11:06, NO SIGNIFICANT CHANGE WAS FOUND Confirmed by BETTE SALAZAR MD ([id number]) on 02/26/2017 9:11:13 AM Referred By: Confirmed By:BETTE SALAZAR MD
[2017-02-26 09:28] LABS: ANION GAP 13 (8-16); BLOOD UREA NITROGEN 26 mg/dL (7-18); CALCIUM 8.6 mg/dL (8.5-10.1); CO2 17 mmol/L (21-32); CREATININE 3.2 mg/dL (0.55-1.02); GLUCOSE,RANDOM 83 mg/dL (74-106); PHOSPHOROUS 5.1 mg/dL (2.5-4.9)
[2017-02-26 09:31] LABS: MAGNESIUM 2.1 mg/dL (1.8-2.4); POTASSIUM 4.8 mmol/L (3.5-5.1)
[2017-02-26] MEDS: ATENOLOL 25 MG TABLET (FP) PO SCH (10:13)
[2017-02-26] MEDS: SODIUM CHLORIDE 1,000 ML IV SCH (10:21)
[2017-02-26] MEDS: ASPIRIN 81 MG CHEWABLE TABLETS PO SCH (10:21)
--- NOTE | 2017-02-26 10:27 | CON.NEP ---
Consult Consult Specialty:: Nephrology Referred by:: CATERINA Tamez Reason for Consultation:: ANGI - History of Present Illness Chief Complaint: Abd Pain, Urinary retention History of Present Illness: This is a 86 year old woman with PMHx of Hypertension, Breat Ca s/p b/l mastectomy/chemo/radiation in 1997), Asthma, Diverticulosis, Hyperlipidemia who presented with complaints of urinary retention and lower Abd pain and found to have ANGI. Pt reports having undergone Abx therapy for suspected UTI with mild relieft but after the course fo Abx were completed she had lower abd pain and uinary retention. No fever or chills. No SOB, chest pain, N/V/D at home. Pt did use Mortin 5-6x at home. Pt is on ACEi. No blood in urine noted. no flank pain. No rash on skin. - History Source History Provided By: Patient Limitations to Obtaining History: No Limitations - Past Medical History Cardio/Vascular: Yes: HTN, Hyperlipdemia Pulmonary: Yes: Asthma, Bronchitis Gastrointestinal: Yes: Diverticulosis Infectious Disease: Yes: Other (Hx of recurrent URI's) Psych: Yes: Anxiety Musculoskeletal: Yes: Osteoarthritis, Other (sciatica) Rheumatology: Yes: Other (soft tissue aches & pains) ENT: Yes: Sinusitis - Past Surgical History Past Surgical History: Yes: Joint Replacement, Mastectomy (bilat x many yrs ago) - Alcohol/Substance Use Hx Alcohol Use: No History of Substance Use: reports: None - Smoking History Smoking history: Never smoked Have you smoked in the past 12 months: No Aproximately how many cigarettes per day: 0 If you are a former smoker, when did you quit?: 1973 - Social History ADL: Independent History of Recent Travel: No Home Medications - Allergies Allergies/Adverse Reactions: Allergies Allergy/AdvReac Type Severity Reaction Status Date / Time egg Allergy Verified 02/25/17 17:07 Sulfa (Sulfonamide Allergy Nausea Verified 02/25/17 17:07 Antibiotics) - Home Medications Home Medications: Ambulatory Orders Atenolol [Tenormin -] 25 mg PO DAILY 08/02/15 Zolpidem Tartrate [Ambien] 10 mg PO HS 03/11/16 Aspirin [ASA -] 81 mg PO DAILY 01/22/17 Benazepril HCl 5 mg PO DAILY 01/22/17 Cyanocobalamin [Vitamin B12 -] 1,000 mcg PO DAILY 01/22/17 Family Disease History - Family Disease History Family History: Unremarkable Review of Systems - Review of Systems Constitutional: reports: Loss of Appetite Eyes: reports: No Symptoms HENT: reports: No Symptoms Neck: reports: No Symptoms Cardiovascular: denies: Chest Pain, Edema, Palpitations, Shortness of Breath Respiratory: denies: Cough, Hemoptysis, Orthopnea, SOB, SOB on Exertion, Wheezing Gastrointestinal: reports: Abdominal Pain. denies: Diarrhea, Melena, Nausea, Vomiting Genitourinary: reports: Dysuria. denies: Flank Pain Musculoskeletal: reports: No Symptoms Integumentary: reports: No Symptoms Neurological: reports: No Symptoms Endocrine: reports: No Symptoms Nephrology Consult - Height Height: 5 ft 3 in - Weight Weight: 55.338 kg - BMI Body Mass Index (BMI): 21.6 - Lab Results CBC,BMP: CBC, BMP 02/26/17 07:00 02/26/17 07:00 Anion Gap: Anion Gap Anion Gap 13 (8-16) 02/26/17 07:00 - Physical Examination Vital Signs: Vital Signs Temperature 98.9 F 02/26/17 05:00 Pulse Rate 83 02/26/17 05:00 Respiratory Rate 18 02/26/17 05:00 Blood Pressure 119/59 02/26/17 05:00 O2 Sat by Pulse Oximetry (%) 98 02/25/17 18:13 Assessment/Plan 86 year old woman with PMHx of Hypertension, Breat Ca s/p b/l mastectomy/chemo/ radiation in 1997), Asthma, Diverticulosis, Hyperlipidemia who presented with complaints of urinary retention and lower Abd pain and found to have ANGI. #Acute Renal Failure likely mulitfactorial: Urinary retention +/- ATN from ACEi + NSAIDs vs. AIN Renal function with mild improvement thus far with IVF continue fluids for now Check FeNa, FeUrea, UPCR serum Eios are normal but will check Urine Eios check Bladder US as it was not well visualized on CT, r/o mass lesions or retention dose all meds for CrCl less then 15 avoid NSAIDs hold ARB, diuretics trend BUN/Cr daily no acute indication for [employer] #Abd pain clinically improved UA negative check urine culture check bladder US #Hyperkalemia in setting of ANGI improved s/p kayexalate low K diet for now #Hypertension hold benazapril continue Atenolol Thank you Will follow Junito Marie DO
[2017-02-26] MEDS: SODIUM CHLORIDE NASAL SPRAY 44 ML BOTTLE NS PRN (16:28)
[2017-02-26] MEDS: ONDANSETRON 4 MG/2 ML VIAL IVPUSH PRN (16:29)
[2017-02-27 06:16] LABS: BASO % 0.7 % (0-2.0); EOS % 3.6 % (0-4.5); HEMATOCRIT 29.8 % (32.4-45.2); HEMOGLOBIN 9.6 GM/dL (10.7-15.3); LYMPH % 19.1 % (8-40); MCH 28.4 pg (25.7-33.7); MCHC 32.3 g/dl (32.0-36.0); MEAN CELL VOLUME 87.9 fl (80-96); MEAN PLT VOLUME 7.9 fl (7.5-11.1); MONO % 11.8 % (3.8-10.2); NEUT % 64.8 % (42.8-82.8); PLATELET COUNT 271 K/MM3 (134-434); RBC 3.39 M/mm3 (3.60-5.2); RDW 13.9 % (11.6-15.6); WHITE BLOOD COUNT 5.3 K/mm3 (4.0-10.0)
[2017-02-27 06:44] LABS: ALBUMIN 2.9 g/dl (3.4-5.0); ANION GAP 12 (8-16); BLOOD UREA NITROGEN 22 mg/dL (7-18); CALCIUM 8.2 mg/dL (8.5-10.1); CHLORIDE 105 mmol/L (98-107); CO2 20 mmol/L (21-32); GLUCOSE,RANDOM 67 mg/dL (74-106); SODIUM 137 mmol/L (136-145)
[2017-02-27] MEDS ORDERED: PT OWN MED DRAWER 7, Y5N ONE (06:47)
[2017-02-27 06:48] LABS: ALK PHOS 70 U/L (45-117); BILIRUBIN,TOTAL 0.4 mg/dL (0.2-1.0); CREATININE 2.1 mg/dL (0.55-1.02); PHOSPHOROUS 4.5 mg/dL (2.5-4.9); SGPT/ALT 9 U/L (12-78); TOT PROT 5.6 g/dl (6.4-8.2)
[2017-02-27] MEDS: SODIUM CHLORIDE 1,000 ML IV SCH ×2 (06:50→18:06)
[2017-02-27] MEDS: SODIUM CHLORIDE NASAL SPRAY 44 ML BOTTLE NS PRN (06:50)
[2017-02-27 07:31] LABS: MAGNESIUM 1.9 mg/dL (1.8-2.4); SGOT/AST 20 U/L (15-37)
[2017-02-27] MEDS: ATENOLOL 25 MG TABLET (FP) PO SCH (09:13)
[2017-02-27] MEDS: ASPIRIN 81 MG CHEWABLE TABLETS PO SCH (09:13)
[2017-02-27] MEDS: ALBUTEROL SO4 0.083% IH SOL 2.5 MG/3 ML VIAL.NEB. NEB PRN ×2 (10:15→17:32)
--- NOTE | 2017-02-27 10:26 | PN ---
Progress Note (short form) - Note Progress Note: feels better sitting in chair denies pain wants to eat real food taking liquids- passing urine cr - better Vital Signs Temp 98.2 F 02/27/17 05:55 Pulse 72 02/27/17 05:55 Resp 20 02/27/17 05:55 BP 115/64 02/27/17 05:55 Pulse Ox 98 02/25/17 18:13 Intake & Output 02/26/17 02/26/17 02/27/17 11:59 23:59 11:59 Intake Total 200 800 300 Balance 200 800 300 Weight 122 lb Intake: IV 800 Normal Saline - 1,000 ml 800 @ 100 mls/hr IV ASDIR [facility] Rx#:[id number] Oral 200 300 Other: Voiding Method Toilet Toilet Toilet # Unmeasured Voids Void 1 Bowel Movement Yes No Height 5 ft 3 in Body Mass Index (BMI) 21.6 Active Medications Albuterol Sulfate (Ventolin 0.083% Nebulizer Soln -) 1 amp NEB Q4H PRN PRN Reason: SHORT OF BREATH/WHEEZING Aspirin (Asa -) 81 mg PO DAILY [facility] Last Admin: 02/27/17 09:13 Dose: 81 mg Atenolol (Tenormin -) 25 mg PO DAILY [facility] Last Admin: 02/27/17 09:13 Dose: Not Given Sodium Chloride (Normal Saline -) 1,000 mls @ 100 mls/hr IV ASDIR ADALI Last Admin: 02/27/17 06:50 Dose: 100 mls/hr Ondansetron HCl (Zofran Injection) 4 mg IVPUSH Q8H PRN PRN Reason: NAUSEA AND/OR VOMITING Last Admin: 02/26/17 16:29 Dose: 4 mg Sodium Chloride ([place] Nasal [place] -) 1 spray NS Q4H PRN PRN Reason: NASAL CONGESTION Last Admin: 02/27/17 06:50 Dose: 1 sprays CBC, BMP 02/27/17 05:40 02/27/17 05:40 physical exam awake and comfortable--- sitting in chair Neck --supple Lungs--- diminishes at bases CVS--- S1-S2 regular Abdomen--- soft, non tender bowel sounds present Extremities--no edema Neuro--alert and oriented 3 Psych--- mild anxiety present Assessment and plan Better Continue IV fluids--Decrease rate low salt diet continue present care Discussed with nursing staff. will follow Problem List - Problems (1) ANGI (acute kidney injury) Code(s): N17.9 - ACUTE KIDNEY FAILURE, UNSPECIFIED (2) Hyponatremia Code(s): E87.1 - HYPO-OSMOLALITY AND HYPONATREMIA (3) Abdominal pain Code(s): R10.9 - UNSPECIFIED ABDOMINAL PAIN Qualifiers: Abdominal location: upper abdomen, unspecified Qualified Code(s): R10.10 - Upper abdominal pain, unspecified
--- NOTE | 2017-02-27 13:18 | PN ---
Progress Note (short form) - Note Progress Note: Renal follow up for ANGI Pt seen and examined at the bedside awake and alert complains of cough, no sob no chest pain urinating well no dysuria or flank pain Vital Signs Temperature 98.2 F 02/27/17 08:04 Pulse Rate 88 02/27/17 08:04 Respiratory Rate 18 02/27/17 08:04 Blood Pressure 109/60 02/27/17 08:04 O2 Sat by Pulse Oximetry (%) 98 02/25/17 18:13 Intake & Output 02/24/17 02/25/17 02/26/17 02/27/17 23:59 23:59 23:59 23:59 Intake Total 700 1000 300 Balance 700 1000 300 Weight 55.338 kg 55.338 kg NAD RRR CTA, no rales or wheeze soft NT/ND No LE edema CBC, BMP 02/27/17 05:40 02/27/17 05:40 Current Medications Albuterol Sulfate (Ventolin 0.083% Nebulizer Soln -) 1 amp NEB Q4H PRN PRN Reason: SHORT OF BREATH/WHEEZING Aspirin (Asa -) 81 mg PO DAILY [facility] Last Admin: 02/27/17 09:13 Dose: 81 mg Atenolol (Tenormin -) 25 mg PO DAILY [facility] Last Admin: 02/27/17 09:13 Dose: Not Given Guaifenesin/Codeine Phosphate (Robitussin Ac -) 5 ml PO BID PRN PRN Reason: COUGH Sodium Chloride (Normal Saline -) 1,000 mls @ 100 mls/hr IV ASDIR ADALI Last Admin: 02/27/17 06:50 Dose: 100 mls/hr Ondansetron HCl (Zofran Injection) 4 mg IVPUSH Q8H PRN PRN Reason: NAUSEA AND/OR VOMITING Last Admin: 02/26/17 16:29 Dose: 4 mg Sodium Chloride ([place] Nasal [place] -) 1 spray NS Q4H PRN PRN Reason: NASAL CONGESTION Last Admin: 02/27/17 06:50 Dose: 1 sprays 86 year old woman with PMHx of Hypertension, Breat Ca s/p b/l mastectomy/chemo/ radiation in 1997), Asthma, Diverticulosis, Hyperlipidemia who presented with complaints of urinary retention and lower Abd pain and found to have ANGI. #Acute Renal Failure likely mulitfactorial: Urinary retention +/- ATN from ACEi + NSAIDs vs. AIN Renal function improving with IVF FeNa was < 1% indicating preserved tubular function continue IVF for now #Abd pain UA negative check urine culture bladder US showed no retention #Hyperkalemia in setting of ANGI improved s/p kayexalate low K diet for now #Hypertension bp at goal on BB alone #Cough lungs clear on examination start cough medication prn Junito Marie DO
[2017-02-27] MEDS: guaiFENesin/CODEINE 5 ML UNIT-DOSE CUPS PO PRN (13:33)
[2017-02-27] MEDS: ACETAMINOPHEN 325 MG TABLET (FP) PO PRN ×2 (13:55→18:07)
[2017-02-27] MEDS ORDERED: LEVOFLOXACIN 500 MG IVPB 500 MG/100 ML BAG IVPB ONE (14:00)
[2017-02-28] MEDS: ACETAMINOPHEN 325 MG TABLET (FP) PO PRN ×2 (02:43→09:28)
[2017-02-28 09:23] LABS: ALBUMIN 2.9 g/dl (3.4-5.0); ANION GAP 7 (8-16); BLOOD UREA NITROGEN 15 mg/dL (7-18); CALCIUM 7.4 mg/dL (8.5-10.1); CHLORIDE 108 mmol/L (98-107); CO2 20 mmol/L (21-32); CREATININE 1.4 mg/dL (0.55-1.02); GLUCOSE,RANDOM 80 mg/dL (74-106); POTASSIUM 4.8 mmol/L (3.5-5.1); SGOT/AST 22 U/L (15-37); SGPT/ALT 13 U/L (12-78); SODIUM 135 mmol/L (136-145)
[2017-02-28 09:25] LABS: ALK PHOS 63 U/L (45-117); BILIRUBIN,TOTAL 0.3 mg/dL (0.2-1.0); TOT PROT 5.6 g/dl (6.4-8.2)
[2017-02-28] MEDS: guaiFENesin/CODEINE 5 ML UNIT-DOSE CUPS PO PRN ×3 (09:28→20:38)
[2017-02-28] MEDS: ATENOLOL 25 MG TABLET (FP) PO SCH (09:29)
[2017-02-28] MEDS: SODIUM CHLORIDE 1,000 ML IV SCH (09:29)
[2017-02-28] MEDS: ASPIRIN 81 MG CHEWABLE TABLETS PO SCH (09:29)
--- NOTE | 2017-02-28 10:52 | PN ---
Progress Note (short form) - Note Progress Note: Renal follow up for ANGI Pt seen and examined at the bedside reports feeling much better no sob, chest pain, abd pain no N/V/D +fevers cough improved with meds Vital Signs Temperature 100.4 F H 02/28/17 06:00 Pulse Rate 109 H 02/28/17 06:00 Respiratory Rate 28 H 02/28/17 06:00 Blood Pressure 104/47 02/28/17 06:00 O2 Sat by Pulse Oximetry (%) 98 02/25/17 18:13 Intake & Output 02/25/17 02/26/17 02/27/17 02/28/17 23:59 23:59 23:59 23:59 Intake Total 700 1000 1850 Balance 700 1000 1850 Weight 55.338 kg 55.338 kg NAD RRR CTA, no rales or wheeze soft NT/ND No LE edema CBC, BMP 02/27/17 05:40 02/28/17 07:00 Current Medications Acetaminophen (Tylenol -) 650 mg PO Q4H PRN Last Admin: 02/28/17 09:28 Dose: 650 mg Albuterol Sulfate (Ventolin 0.083% Nebulizer Soln -) 1 amp NEB Q4H PRN PRN Reason: SHORT OF BREATH/WHEEZING Last Admin: 02/27/17 17:32 Dose: 1 amp Aspirin (Asa -) 81 mg PO DAILY [facility] Last Admin: 02/28/17 09:29 Dose: 81 mg Atenolol (Tenormin -) 25 mg PO DAILY [facility] Last Admin: 02/28/17 09:29 Dose: 25 mg Guaifenesin/Codeine Phosphate (Robitussin Ac -) 5 ml PO BID PRN PRN Reason: COUGH Last Admin: 02/28/17 09:28 Dose: 5 ml Sodium Chloride (Normal Saline -) 1,000 mls @ 100 mls/hr IV ASDIR ADALI Last Admin: 02/28/17 09:29 Dose: Not Given Ondansetron HCl (Zofran Injection) 4 mg IVPUSH Q8H PRN PRN Reason: NAUSEA AND/OR VOMITING Last Admin: 02/26/17 16:29 Dose: 4 mg Sodium Chloride ([place] Nasal [place] -) 1 spray NS Q4H PRN PRN Reason: NASAL CONGESTION Last Admin: 02/27/17 06:50 Dose: 1 sprays 86 year old woman with PMHx of Hypertension, Breat Ca s/p b/l mastectomy/chemo/ radiation in 1997), Asthma, Diverticulosis, Hyperlipidemia who presented with complaints of urinary retention and lower Abd pain and found to have ANGI. #Acute Renal Failure likely mulitfactorial: Urinary retention +/- ATN from ACEi + NSAIDs vs. AIN Renal function with significnat improvement can d/c IVF oral intake as tolerated hold any DOMINGA/ARB, NSAIDs until Cr improves to baseline of 0.8 trend BUN/Cr #Fever/Cough blood and urine cultures w/o growth to date s/p Levaquin yesterday Influenza negative continue anti--pyretics Junito Marie DO
--- NOTE | 2017-02-28 14:13 | PN ---
Progress Note (short form) - Note Progress Note: pt spiked fever yesterday and also having today sitting in chair says feels great !! Except cough - dry denies cp/sob/abd pain denies urinary burning given levaquin yesterday emperically influenza -ve cultures send. tolerating diet Vital Signs Temp 99.6 F 02/28/17 14:04 Pulse 88 02/28/17 14:04 Resp 22 02/28/17 14:04 BP 108/54 02/28/17 14:04 Pulse Ox 98 02/25/17 18:13 Intake & Output 02/27/17 02/28/17 02/28/17 23:59 11:59 23:59 Intake Total 1550 Balance 1550 Intake: IV 900 Normal Saline - 1,000 ml 900 @ 100 mls/hr IV ASDIR ADALI Rx#:[id number] IVPB 100 Oral 550 Other: Voiding Method Toilet Toilet Toilet # Unmeasured Voids Void 2 Bowel Movement Yes # Bowel Movements 1 Active Medications Acetaminophen (Tylenol -) 650 mg PO Q4H PRN Last Admin: 02/28/17 09:28 Dose: 650 mg Albuterol Sulfate (Ventolin 0.083% Nebulizer Soln -) 1 amp NEB Q4H PRN PRN Reason: SHORT OF BREATH/WHEEZING Last Admin: 02/27/17 17:32 Dose: 1 amp Aspirin (Asa -) 81 mg PO DAILY [facility] Last Admin: 02/28/17 09:29 Dose: 81 mg Atenolol (Tenormin -) 25 mg PO DAILY [facility] Last Admin: 02/28/17 09:29 Dose: 25 mg Guaifenesin/Codeine Phosphate (Robitussin Ac -) 5 ml PO BID PRN PRN Reason: COUGH Last Admin: 02/28/17 09:28 Dose: 5 ml Levofloxacin (Levaquin 250 Mg Premixed Ivpb -) 250 mg in 50 mls @ 50 mls/hr IVPB DAILY [facility] Ondansetron HCl (Zofran Injection) 4 mg IVPUSH Q8H PRN PRN Reason: NAUSEA AND/OR VOMITING Last Admin: 02/26/17 16:29 Dose: 4 mg Sodium Chloride ([place] Nasal [place] -) 1 spray NS Q4H PRN PRN Reason: NASAL CONGESTION Last Admin: 02/27/17 06:50 Dose: 1 sprays CBC, BMP 02/27/17 05:40 02/28/17 07:00 cxr- no infiltrate Microbiology 02/27/17 14:30 Influenza Types A,B Antigen (MATY) - Final Nasopharyngeal Swab - Final 02/25/17 17:48 Urine Culture - Final Urine - Urine Clean Catch NO GROWTH OBTAINED bc - send physical exam awake and comfortable--- sitting in chair Neck --supple/ no jvd Lungs--- diminishes at bases CVS--- S1-S2 regular Abdomen--- soft, non tender bowel sounds present Extremities--no edema Neuro--alert and oriented 3 Psych--- calm Assessment and plan fever continue abx f/u cultures continue present care Discussed with nursing staff. will follow Problem List - Problems (1) ANGI (acute kidney injury) Code(s): N17.9 - ACUTE KIDNEY FAILURE, UNSPECIFIED (2) Hyponatremia Code(s): E87.1 - HYPO-OSMOLALITY AND HYPONATREMIA (3) Abdominal pain Code(s): R10.9 - UNSPECIFIED ABDOMINAL PAIN Qualifiers: Abdominal location: upper abdomen, unspecified Qualified Code(s): R10.10 - Upper abdominal pain, unspecified (4) Fever Code(s): R50.9 - FEVER, UNSPECIFIED Qualifiers: Fever type: other Qualified Code(s): R50.81 - Fever presenting with conditions classified elsewhere
[2017-02-28] MEDS ORDERED: LEVOFLOXACIN 250 MG IVPB 250 MG/50 ML MG IVPB SCH (15:00)
[2017-02-28] MEDS: LEVOFLOXACIN 250 MG TABLET (FP) PO SCH (17:04)
[2017-02-28] MEDS: ONDANSETRON 4 MG/2 ML VIAL IVPUSH PRN (20:38)
[2017-03-01] MEDS: ACETAMINOPHEN 325 MG TABLET (FP) PO PRN (02:44)
[2017-03-01] MEDS ORDERED: LEVOFLOXACIN 250 MG TABLET (FP) PO SCH (06:00)
[2017-03-01] MEDS: LEVOFLOXACIN 250 MG TABLET (FP) PO SCH (06:47)
[2017-03-01] MEDS: ASPIRIN 81 MG CHEWABLE TABLETS PO SCH (09:21)
[2017-03-01] MEDS: ATENOLOL 25 MG TABLET (FP) PO SCH (09:21)
[2017-03-01 09:35] LABS: BILIRUBIN,TOTAL 0.2 mg/dL (0.2-1.0); BLOOD UREA NITROGEN 15 mg/dL (7-18); CHLORIDE 106 mmol/L (98-107); CREATININE 1.3 mg/dL (0.55-1.02); GLUCOSE,RANDOM 73 mg/dL (74-106); PHOSPHOROUS 3.8 mg/dL (2.5-4.9); POTASSIUM 4.5 mmol/L (3.5-5.1); SGOT/AST 46 U/L (15-37); SGPT/ALT 19 U/L (12-78); SODIUM 134 mmol/L (136-145); TOT PROT 6.3 g/dl (6.4-8.2)
[2017-03-01 09:36] LABS: ALK PHOS 64 U/L (45-117); ANION GAP 10 (8-16); CALCIUM 7.9 mg/dL (8.5-10.1); CO2 18 mmol/L (21-32); MAGNESIUM 1.4 mg/dL (1.8-2.4)
--- NOTE | 2017-03-01 12:39 | PN ---
Progress Note (short form) - Note Progress Note: pt awake/ comfortable spiked fever last night.-103 non toxic appearance c/c- irritating cough also complains of loose stools today denies abdominal pain Vital Signs Temp 99.7 F H 03/01/17 09:00 Pulse 101 H 03/01/17 09:00 Resp 20 03/01/17 09:00 BP 118/50 03/01/17 09:00 Pulse Ox 98 02/25/17 18:13 Intake & Output 02/28/17 03/01/17 03/01/17 23:59 11:59 23:59 Intake Total 1959 Balance 1959 Intake: IV 900 Normal Saline - 1,000 ml 900 @ 100 mls/hr IV ASDIR ADALI Rx#:[id number] IVPB 100 Oral 960 Other: Voiding Method Toilet Toilet # Unmeasured Voids Void 4 Bowel Movement Yes # Bowel Movements 1 physical exam awake and comfortable--- sitting in chair Neck --supple/ no jvd Lungs--- diminishes at bases CVS--- S1-S2 regular Abdomen--- soft, non tender bowel sounds present Extremities--no edema Neuro--alert and oriented 3 Psych--- calm Assessment and plan fever diarrhea cough continue abx--levaquin - changed to po - pt refusing to take i/v add flagyl check c diff ct chest f/u cultures continue present care will follow Problem List - Problems (1) ANGI (acute kidney injury) Code(s): N17.9 - ACUTE KIDNEY FAILURE, UNSPECIFIED (2) Hyponatremia Code(s): E87.1 - HYPO-OSMOLALITY AND HYPONATREMIA (3) Abdominal pain Code(s): R10.9 - UNSPECIFIED ABDOMINAL PAIN Qualifiers: Abdominal location: upper abdomen, unspecified Qualified Code(s): R10.10 - Upper abdominal pain, unspecified (4) Fever Code(s): R50.9 - FEVER, UNSPECIFIED Qualifiers: Fever type: other Qualified Code(s): R50.81 - Fever presenting with conditions classified elsewhere
[2017-03-01] MEDS: metroNIDAZOLE 250 MG TABLET PO SCH ×2 (16:07→22:17)
[2017-03-01] MEDS: guaiFENesin/CODEINE 5 ML UNIT-DOSE CUPS PO PRN (20:27)
[2017-03-02] MEDS: ACETAMINOPHEN 325 MG TABLET (FP) PO PRN ×2 (06:19→21:29)
[2017-03-02] MEDS: metroNIDAZOLE 250 MG TABLET PO SCH ×3 (06:20→21:29)
[2017-03-02] MEDS: LEVOFLOXACIN 250 MG TABLET (FP) PO SCH (06:20)
[2017-03-02] MEDS: ASPIRIN 81 MG CHEWABLE TABLETS PO SCH (09:42)
[2017-03-02] MEDS: ATENOLOL 25 MG TABLET (FP) PO SCH (09:42)
--- NOTE | 2017-03-02 10:34 | PN ---
Progress Note (short form) - Note Progress Note: pt wants to go home. continue to have low grade temp. refusing blood work denies pain. +ve diarrhea refuses ct scan. Vital Signs Temp 100.4 F H 03/02/17 05:29 Pulse 92 H 03/02/17 05:29 Resp 22 03/02/17 05:29 BP 116/62 03/02/17 05:29 Pulse Ox 98 02/25/17 18:13 Intake & Output 03/01/17 03/01/17 03/02/17 11:59 23:59 11:59 Intake Total 200 Balance 200 Intake: Oral 200 Other: Voiding Method Toilet Toilet Toilet # Unmeasured Voids Void 5 Bowel Movement No Active Medications Acetaminophen (Tylenol -) 650 mg PO Q4H PRN Last Admin: 03/02/17 06:19 Dose: 650 mg Albuterol Sulfate (Ventolin 0.083% Nebulizer Soln -) 1 amp NEB Q4H PRN PRN Reason: SHORT OF BREATH/WHEEZING Last Admin: 02/27/17 17:32 Dose: 1 amp Aspirin (Asa -) 81 mg PO DAILY [facility] Last Admin: 03/02/17 09:42 Dose: 81 mg Atenolol (Tenormin -) 25 mg PO DAILY [facility] Last Admin: 03/02/17 09:42 Dose: 25 mg Guaifenesin/Codeine Phosphate (Robitussin Ac -) 5 ml PO BID PRN PRN Reason: COUGH Last Admin: 03/01/17 20:27 Dose: 5 ml Levofloxacin (Levaquin -) 250 mg PO DAILY@0600 [facility] Last Admin: 03/02/17 06:20 Dose: 250 mg Metronidazole (Flagyl -) 500 mg PO TID [facility] Last Admin: 03/02/17 06:20 Dose: 500 mg Ondansetron HCl (Zofran Injection) 4 mg IVPUSH Q8H PRN PRN Reason: NAUSEA AND/OR VOMITING Last Admin: 02/28/17 20:38 Dose: 4 mg Sodium Chloride ([place] Nasal [place] -) 1 spray NS Q4H PRN PRN Reason: NASAL CONGESTION Last Admin: 02/27/17 06:50 Dose: 1 sprays physical exam Awake and comfortable--- sitting in chair Neck --supple/ no jvd Lungs--- diminishes at bases. CVS--- S1-S2 regular Abdomen--- soft, non tender bowel sounds present Extremities--no edema Neuro--alert and oriented 3 Psych--- Anxious Assessment and plan fever diarrhea cough continue abx-- c diff pending f/u labs- pt agrees to do after convincing me to do it will consult i/d also continue present care will follow Problem List - Problems (1) ANGI (acute kidney injury) Code(s): N17.9 - ACUTE KIDNEY FAILURE, UNSPECIFIED (2) Hyponatremia Code(s): E87.1 - HYPO-OSMOLALITY AND HYPONATREMIA (3) Abdominal pain Code(s): R10.9 - UNSPECIFIED ABDOMINAL PAIN Qualifiers: Abdominal location: upper abdomen, unspecified Qualified Code(s): R10.10 - Upper abdominal pain, unspecified (4) Fever Code(s): R50.9 - FEVER, UNSPECIFIED Qualifiers: Fever type: other
[2017-03-02 10:37] LABS: BASO % 0.4 % (0-2.0); EOS % 0.2 % (0-4.5); HEMATOCRIT 32.4 % (32.4-45.2); HEMOGLOBIN 10.2 GM/dL (10.7-15.3); LYMPH % 16.7 % (8-40); MCH 27.7 pg (25.7-33.7); MCHC 31.4 g/dl (32.0-36.0); MEAN CELL VOLUME 88.1 fl (80-96); MEAN PLT VOLUME 7.6 fl (7.5-11.1); MONO % 9.8 % (3.8-10.2); NEUT % 72.9 % (42.8-82.8); PLATELET COUNT 235 K/MM3 (134-434); RBC 3.68 M/mm3 (3.60-5.2); WHITE BLOOD COUNT 3.9 K/mm3 (4.0-10.0)
[2017-03-02 11:05] LABS: ALBUMIN 2.9 g/dl (3.4-5.0); ALK PHOS 61 U/L (45-117); ANION GAP 14 (8-16); BILIRUBIN,TOTAL 0.2 mg/dL (0.2-1.0); BLOOD UREA NITROGEN 18 mg/dL (7-18); CALCIUM 7.8 mg/dL (8.5-10.1); CHLORIDE 104 mmol/L (98-107); CO2 18 mmol/L (21-32); CREATININE 1.2 mg/dL (0.55-1.02); GLUCOSE,RANDOM 73 mg/dL (74-106); POTASSIUM 4.5 mmol/L (3.5-5.1); SGOT/AST 40 U/L (15-37); SGPT/ALT 18 U/L (12-78); SODIUM 136 mmol/L (136-145); TOT PROT 5.7 g/dl (6.4-8.2)
--- NOTE | 2017-03-02 12:03 | PN ---
Progress Note (short form) - Note Progress Note: Renal follow up for ANGI Pt seen and examined at the bedside + fevers + cough no sob, chest pain, abd pain Vital Signs Temperature 100.4 F H 03/02/17 05:29 Pulse Rate 95 H 03/02/17 10:00 Respiratory Rate 20 03/02/17 10:00 Blood Pressure 101/51 03/02/17 10:00 O2 Sat by Pulse Oximetry (%) 98 02/25/17 18:13 Intake & Output 02/27/17 02/28/17 03/01/17 03/02/17 23:59 23:59 23:59 23:59 Intake Total 1850 1960 200 Balance 1850 1960 200 NAD RRR CTA, no rales or wheeze soft NT/ND No LE edema CBC, BMP 03/02/17 10:15 03/02/17 10:15 Current Medications Acetaminophen (Tylenol -) 650 mg PO Q4H PRN Last Admin: 03/02/17 06:19 Dose: 650 mg Albuterol Sulfate (Ventolin 0.083% Nebulizer Soln -) 1 amp NEB Q4H PRN PRN Reason: SHORT OF BREATH/WHEEZING Last Admin: 02/27/17 17:32 Dose: 1 amp Aspirin (Asa -) 81 mg PO DAILY [facility] Last Admin: 03/02/17 09:42 Dose: 81 mg Atenolol (Tenormin -) 25 mg PO DAILY [facility] Last Admin: 03/02/17 09:42 Dose: 25 mg Guaifenesin/Codeine Phosphate (Robitussin Ac -) 5 ml PO BID PRN PRN Reason: COUGH Last Admin: 03/01/17 20:27 Dose: 5 ml Levofloxacin (Levaquin -) 250 mg PO DAILY@0600 [facility] Last Admin: 03/02/17 06:20 Dose: 250 mg Metronidazole (Flagyl -) 500 mg PO TID [facility] Last Admin: 03/02/17 06:20 Dose: 500 mg Ondansetron HCl (Zofran Injection) 4 mg IVPUSH Q8H PRN PRN Reason: NAUSEA AND/OR VOMITING Last Admin: 02/28/17 20:38 Dose: 4 mg Sodium Chloride ([place] Nasal [place] -) 1 spray NS Q4H PRN PRN Reason: NASAL CONGESTION Last Admin: 02/27/17 06:50 Dose: 1 sprays 86 year old woman with PMHx of Hypertension, [place] s/p b/l mastectomy/chemo/ radiation in 1997), Asthma, Diverticulosis, Hyperlipidemia who presented with complaints of urinary retention and lower Abd pain and found to have ANGI. #Acute Renal Failure likely mulitfactorial: Urinary retention +/- ATN from ACEi + NSAIDs vs. AIN Renal function improved and sable still not at baseline off IVF, tolerating oral diet would continue to trend BUN/cr as inpatient #Fever/Cough blood and urine cultures w/o growth to date on PO levaquin ID following #Metabolic acidosis start sodium bicarb 650mg Daily trend serum bicarb daily can dc if goes > 24 Junito Marie DO
[2017-03-02] MEDS: SODIUM BICARBONATE 650 MG TABLET PO SCH (12:17)
--- NOTE | 2017-03-02 13:09 | PN ---
Progress Note (short form) - Note Progress Note: ID Consult dictated 86 y/o female with fever, loose BMs after course of cipro/ levaquin for UTI ? C difficile colitis Pending stool C difficile continue po flagyl
--- NOTE | 2017-03-02 18:23 | CONS ---
DATE OF CONSULTATION: DATE OF DICTATION: 03/02/2017 The patient is an 86-year-old female who is evaluated for fever. The patient was admitted to the hospital on February 25, 2017 with complaints of suprapubic pain. She had complained of urinary tract symptoms prior to admission and received a course of ciprofloxacin. Upon admission, the patient was noted to have cloudy urine and evidence of acute kidney injury. Cultures were obtained. She was empirically treated with Levaquin and Flagyl. Course was complicated by urinary retention and hyponatremia. She had intermittent temperature spikes and was noted to have fever to 103, now with loose bowel movements and leukopenia. Stool Clostridium difficile was ordered and is pending. At the present time, she is out of bed to chair. She denies any fever or chills, denies any urinary tract symptoms. She reports having 3 loose bowel movements earlier today. PAST MEDICAL HISTORY: Positive for hypertension, hyperlipidemia, breast cancer, diverticulosis, asthma. PAST SURGICAL HISTORY: Status post bilateral mastectomy and implants, appendectomy, spinal surgery. ALLERGIES: SULFA. MEDICATIONS: Atenolol, Ambien, aspirin, Benazepril. SOCIAL HISTORY: Former smoker, lives at home. SYSTEMS REVIEW:Neurologic: No loss of consciousness, seizure activity or focal weakness. Cardiac: Negative chest pain or palpitations. Respiratory: Negative cough or sputum production. Gastrointestinal: Negative vomiting. Genitourinary: As per HPI. LABORATORY DATA: White count 3.9, 72 neutrophils, 16 lymphocytes, 9 monocytes, hematocrit 32.4, platelet count 235. BUN 18, creatinine 1.1. Urine leukocyte esterase negative. Blood cultures negative. Influenza swab negative. Chest x-ray: Some atelectasis at the bases. CAT scan of the chest is ordered and is pending. PHYSICAL EXAMINATION: General: She is out of bed to chair. The patient is nontoxic appearing. Vital Signs: Temperature of 100.4, T-max 103.1, blood pressure 101/51, pulse 95 and regular, respirations 20 per minute. Eyes: Sclerae anicteric. Cardiac: Heart sounds: S1, S2. Lungs: Crepitations at the bases bilaterally. Abdomen: Soft. No tenderness elicited. No suprapubic or flank tenderness. Extremities: Edema 1+. IMPRESSION: An 86-year-old female admitted with urinary tract symptoms and acute kidney injury, now with fever and loose bowel movements after course of ciprofloxacin and Levaquin for urinary tract infection. Suspect Clostridium difficile colitis. Await stool for C difficile. Continue p.o. Flagyl. CAT scan of the chest has been ordered, will review. Re-culture for temp greater than 101. Will follow. Thank you for the kind referral. MARSHALL YORK M.D. VIRGIL/[id number]
[2017-03-03] MEDS: metroNIDAZOLE 250 MG TABLET PO SCH (06:36)
[2017-03-03] MEDS: LEVOFLOXACIN 250 MG TABLET (FP) PO SCH (06:36)
--- NOTE | 2017-03-03 08:51 | DS ---
Physical Examination Vital Signs: Vital Signs Temperature 98.8 F 03/03/17 05:46 Pulse Rate 74 03/03/17 05:46 Respiratory Rate 20 03/03/17 05:46 Blood Pressure 121/61 03/03/17 05:46 O2 Sat by Pulse Oximetry (%) 98 02/25/17 18:13 Findings/Remarks: feels well wants to go home dont want to stay says diarrhea much better denies cp/sob/abd pain low grade temp. Constitutional: Yes: No Distress, Calm Neck: Yes: Supple Cardiovascular: Yes: Regular Rate and Rhythm Respiratory: Yes: CTA Bilaterally Gastrointestinal: Yes: Normal Bowel Sounds, Soft Edema: No Neurological: Yes: Alert (aox 3) Psychiatric: Yes: Alert Labs: CBC, BMP 03/02/17 10:15 Discharge Summary Reason For Visit: HYPONATREMIA ACUTE KIDNEY INJURY Current Active Problems ANGI (acute kidney injury) (Acute) DVT prophylaxis (Acute) Hyperkalemia (Acute) Hyponatremia (Acute) Hospital Course: This is a 86 y/o woman with a PMHx of: HTN, HLD, Breast Ca (bilateral mastectomy , Chemo, 1997), Asthma, Diverticulosis. Who presents to the ED with suprapubic abdominal pain, generalized weakness, decreased appetite 4-5 days. Patient reports being started on Cipro by her PMD- with no improvement. Patient reports nausea, dizziness. Patient denies fever, chills, cough, SOB, CP, palpitations, vomiting, diarrhea, dysuria. pt found in arf treated with iv fluids ct scan of abd also done-- liquid stool in colon - otherwise ok it also showed solid nodule in lung- pt refused ct chest pt also devolped fever- influnza -ve treated with emperic abx c diff -ve i/d also consulted pt now stable for d/c on po abx strongly advised to follow with his pmd in 2-3 days pt wants to go home only. discussed with Dr. Antony Will d/c on po abx meds send. Discussed with nursing staff. d/c time 35 min in examining/ documenting and coordating care. Condition: Stable - Instructions Disposition: HOME - Home Medications Comprehensive Discharge Medication List: Ambulatory Orders Atenolol [Tenormin -] 25 mg PO DAILY 08/02/15 Zolpidem Tartrate [Ambien] 10 mg PO HS 03/11/16 Aspirin [ASA -] 81 mg PO DAILY 01/22/17 Benazepril HCl 5 mg PO DAILY 01/22/17 Cyanocobalamin [Vitamin B12 -] 1,000 mcg PO DAILY 01/22/17 Levofloxacin [Levaquin -] 250 mg PO DAILY@0600 #5 tablet 03/03/17 Metronidazole [Flagyl -] 500 mg PO TID #15 tablet 03/03/17 Sodium Bicarbonate - 650 mg PO DAILY #30 tablet 03/03/17
[2017-03-03 08:56] VITALS: BP 100/69; PULSE 76; TEMP 100
[2017-03-03 08:57] LABS: ANION GAP 13 (8-16); CALCIUM 8.1 mg/dL (8.5-10.1); CHLORIDE 106 mmol/L (98-107); CO2 17 mmol/L (21-32); GLUCOSE,RANDOM 82 mg/dL (74-106); MAGNESIUM 1.3 mg/dL (1.8-2.4); POTASSIUM 4.4 mmol/L (3.5-5.1); SODIUM 136 mmol/L (136-145)
[2017-03-03 09:06] LABS: BLOOD UREA NITROGEN 18 mg/dL (7-18); CREATININE 1.1 mg/dL (0.55-1.02); PHOSPHOROUS 2.4 mg/dL (2.5-4.9)
[2017-03-03] MEDS ORDERED: MAGNESIUM SULF 50% (8.12 MEQ/2 ML-1 GM VIAL) IVPB ONE ×2 (09:34→11:44)
--- NOTE | 2017-03-03 09:42 | PN ---
Progress Note, Physician Chief Complaint: ID Diarrhea improved Low grade temp - Current Medication List Current Medications: Active Medications Acetaminophen (Tylenol -) 650 mg PO Q4H PRN Last Admin: 03/02/17 21:29 Dose: 650 mg Albuterol Sulfate (Ventolin 0.083% Nebulizer Soln -) 1 amp NEB Q4H PRN PRN Reason: SHORT OF BREATH/WHEEZING Last Admin: 02/27/17 17:32 Dose: 1 amp Aspirin (Asa -) 81 mg PO DAILY [facility] Last Admin: 03/02/17 09:42 Dose: 81 mg Atenolol (Tenormin -) 25 mg PO DAILY [facility] Last Admin: 03/02/17 09:42 Dose: 25 mg Levofloxacin (Levaquin -) 250 mg PO DAILY@0600 [facility] Last Admin: 03/03/17 06:36 Dose: 250 mg Metronidazole (Flagyl -) 500 mg PO TID [facility] Last Admin: 03/03/17 06:36 Dose: 500 mg Ondansetron HCl (Zofran Injection) 4 mg IVPUSH Q8H PRN PRN Reason: NAUSEA AND/OR VOMITING Last Admin: 02/28/17 20:38 Dose: 4 mg Sodium Bicarbonate (Sodium Bicarbonate -) 650 mg PO DAILY [facility] Last Admin: 03/02/17 12:17 Dose: 650 mg Sodium Chloride ([place] Nasal [place] -) 1 spray NS Q4H PRN PRN Reason: NASAL CONGESTION Last Admin: 02/27/17 06:50 Dose: 1 sprays - Objective Vital Signs: Vital Signs Temperature 100.0 F H 03/03/17 08:55 Pulse Rate 76 03/03/17 08:55 Respiratory Rate 20 03/03/17 08:55 Blood Pressure 100/69 03/03/17 08:55 O2 Sat by Pulse Oximetry (%) 97 03/03/17 08:56 Constitutional: Yes: Well Nourished, No Distress Eyes: Yes: WNL, Conjunctiva Clear HENT: Yes: WNL, Atraumatic Neck: Yes: WNL, Supple Cardiovascular: Yes: Regular Rate and Rhythm, S1, S2 Respiratory: Yes: WNL, Regular, CTA Bilaterally Gastrointestinal: Yes: WNL, Normal Bowel Sounds, Soft. No: Tenderness, Tenderness, Rebound Edema: No Labs: CBC, BMP 03/02/17 10:15 03/03/17 06:00 Assessment/Plan Microbiology 02/27/17 15:05 Blood - Peripheral Venous Blood Culture - Preliminary NO GROWTH OBTAINED AFTER 72 HOURS, INCUBATION TO CONTINUE FOR 2 DAYS. 02/27/17 15:00 Blood - Peripheral Venous Blood Culture - Preliminary NO GROWTH OBTAINED AFTER 72 HOURS, INCUBATION TO CONTINUE FOR 2 DAYS. Laboratory Tests 03/02/17 03/03/17 10:15 06:00 WBC 3.9 L Hgb 10.2 L Hct 32.4 Plt Count 235 BUN 18 Creatinine 1.1 H Assessment Probable viral disease C diff negative Plan As discussed discharge planning ? 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
[2017-03-03] MEDS: ATENOLOL 25 MG TABLET (FP) PO SCH (10:21)
[2017-03-03] MEDS: ASPIRIN 81 MG CHEWABLE TABLETS PO SCH (10:21)
[2017-03-03] MEDS: SODIUM BICARBONATE 650 MG TABLET PO SCH (10:21)
[2017-03-03] MEDS: MAGNESIUM 1GM/D5W - 1 GM/100 ML IVPB IVPB SCH ×2 (11:51→12:57)
--- NOTE | 2017-03-03 15:23 | PN ---
Progress Note (short form) - Note Progress Note: Renal follow up for ANGI Pt seen and examined at the bedside low grade temp today getting new IV placed no acute complaints for discharge home today Vital Signs Temperature 100.0 F H 03/03/17 08:55 Pulse Rate 76 03/03/17 08:55 Respiratory Rate 20 03/03/17 08:55 Blood Pressure 100/69 03/03/17 08:55 O2 Sat by Pulse Oximetry (%) 97 03/03/17 08:56 Intake & Output 02/28/17 03/01/17 03/02/17 03/03/17 23:59 23:59 23:59 23:59 Intake Total 1960 590 450 Balance 1960 590 450 NAD RRR CTA, no rales or wheeze soft NT/ND No LE edema CBC, BMP 03/02/17 10:15 03/03/17 06:00 Current Medications Acetaminophen (Tylenol -) 650 mg PO Q4H PRN Last Admin: 03/02/17 21:29 Dose: 650 mg Albuterol Sulfate (Ventolin 0.083% Nebulizer Soln -) 1 amp NEB Q4H PRN PRN Reason: SHORT OF BREATH/WHEEZING Last Admin: 02/27/17 17:32 Dose: 1 amp Aspirin (Asa -) 81 mg PO DAILY [facility] Last Admin: 03/03/17 10:21 Dose: 81 mg Atenolol (Tenormin -) 25 mg PO DAILY [facility] Last Admin: 03/03/17 10:21 Dose: 25 mg Levofloxacin (Levaquin -) 250 mg PO DAILY@0600 [facility] Last Admin: 03/03/17 06:36 Dose: 250 mg Ondansetron HCl (Zofran Injection) 4 mg IVPUSH Q8H PRN PRN Reason: NAUSEA AND/OR VOMITING Last Admin: 02/28/17 20:38 Dose: 4 mg Sodium Bicarbonate (Sodium Bicarbonate -) 650 mg PO DAILY [facility] Last Admin: 03/03/17 10:21 Dose: 650 mg Sodium Chloride ([place] Nasal [place] -) 1 spray NS Q4H PRN PRN Reason: NASAL CONGESTION Last Admin: 02/27/17 06:50 Dose: 1 sprays 86 year old woman with PMHx of Hypertension, [place] Ca s/p b/l mastectomy/chemo/ radiation in 1997), Asthma, Diverticulosis, Hyperlipidemia who presented with complaints of urinary retention and lower Abd pain and found to have ANGI. #Acute Renal Failure likely mulitfactorial: Urinary retention +/- ATN from ACEi + NSAIDs vs. AIN Renal function improved and sable can resume ACEi at home will need to have repeat labs in 1 week oral hydration as tolerated no diuretics for now #Fever/Cough Abx as per ID #Metabolic acidosis continue sodium bicarb 650mg Daily repeat labs as outpatient and titrate dose as needed Thank you for allowing us to take part in the care of this patient Junito Marie DO
== END 2017-03-03 15:15 | disposition home health service (06) | DRG 683 ==
LOC: JER 16:00 → JERBED 18:57 → J6S 02-26 21:36
PROVIDERS: ADMIT Internal Medicine; ATTEND Internal Medicine
DX: N17.9 Acute kidney failure, unspecified (principal); E87.1 Hypo-osmolality and hyponatremia; E87.2 Acidosis; I10 Essential (primary) hypertension; E78.5 Hyperlipidemia, unspecified; J45.909 Unspecified asthma, uncomplicated; K57.90 Diverticulosis of intestine, part unspecified, without perforation or abscess without bleeding; J32.8 Other chronic sinusitis; M54.30 Sciatica, unspecified side; R10.9 Unspecified abdominal pain; E87.5 Hyperkalemia; F41.8 Other specified anxiety disorders; E86.0 Dehydration; R33.8 Other retention of urine; R50.81 Fever presenting with conditions classified elsewhere; Z85.3 Personal history of malignant neoplasm of breast
CPT/HCPCS: 36415; 71045-TC; 74176-TC; 76856-TC; 80048; 80053; 81003; 82570; 83690; 83735; 84100; 84156; 84300; 84540; 85025; 87040; 87086; 87205; 87324; 87449; 87804; 93005; 93010; 94640; 99285-25

== ENCOUNTER 2017-03-12 09:02 | Inpatient (IN) | payer OTHER, MEDICARE ==
--- NOTE | 2017-03-12 09:27 | PDOC ---
History of Present Illness - General Chief Complaint: Injury Stated Complaint: FALL Time Seen by Provider: 03/12/17 09:14 History Source: Patient - History of Present Illness Initial Comments: 03/12/17 09:27 This is a 86 year old woman with PMHx of Hypertension, Breast Ca s/p b/l mastectomy/chemo/radiation in 1997), Asthma, Diverticulosis, Hyperlipidemia who presented after a fall face down at 10pm last night with impossibility to get up. She was found at 8am. Is on Aspirin no AC. Scheduled for a left shoulder surgery. 03/12/17 13:23 Past History - Past Medical History Allergies/Adverse Reactions: Allergies Allergy/AdvReac Type Severity Reaction Status Date / Time egg Allergy Verified 03/12/17 09:11 egg yolk Allergy Verified 03/12/17 09:11 Sulfa (Sulfonamide Allergy Nausea Verified 03/12/17 09:11 Antibiotics) Home Medications: Ambulatory Orders Atenolol [Tenormin -] 25 mg PO DAILY 08/02/15 Zolpidem Tartrate [Ambien] 10 mg PO HS 03/11/16 Aspirin [ASA -] 81 mg PO DAILY 01/22/17 Benazepril HCl 5 mg PO DAILY 01/22/17 Cyanocobalamin [Vitamin B12 -] 1,000 mcg PO DAILY 01/22/17 Levofloxacin [Levaquin -] 250 mg PO DAILY@0600 #5 tablet 03/03/17 Metronidazole [Flagyl -] 500 mg PO TID #15 tablet 03/03/17 Sodium Bicarbonate - 650 mg PO DAILY #30 tablet 03/03/17 Anemia: No Asthma: No Cancer: Yes (Ancelmo mastectomy) Cardiac Disorders: No CVA: No COPD: No CHF: No DVT: No Dementia: No Diabetes: No GI Disorders: No Disorders: No HTN: Yes Hypercholesterolemia: No Liver Disease: No Seizures: No Thyroid Disease: No - Surgical History Abdominal Surgery: No Appendectomy: Yes Cardiac Surgery: No Cholecystectomy: No Lung Surgery: No Neurologic Surgery: Yes (SPINAL SX) Orthopedic Surgery: No - Immunization History Td Vaccination: No Immunization Up to Date: Yes - Suicide/Smoking/Psychosocial Hx Smoking Status: No Smoking History: Unknown if ever smoked Have you smoked in the past 12 months: No Number of Cigarettes Smoked Daily: 0 If you are a former smoker, when did you quit?: 1973 Hx Alcohol Use: No Drug/Substance Use Hx: No Substance Use Type: None Hx Substance Use Treatment: No Review of Systems - Review of Systems Able to Perform ROS?: Yes Constitutional: No: Symptoms Reported HEENTM: No: Symptoms Reported Respiratory: No: Symptoms reported Cardiac (ROS): No: Symptoms Reported ABD/GI: No: Symptoms Reported : No: Symptoms Reported Musculoskeletal: Yes: Other (left shoulder pain) Integumentary: No: Symptoms Reported Neurological: No: Symptoms reported All Other Systems: Reviewed and Negative *Physical Exam - Vital Signs Last Vital Signs Temp Pulse Resp BP Pulse Ox 98.2 F 74 18 117/74 97 03/12/17 09:12 03/12/17 09:12 03/12/17 09:12 03/12/17 09:12 03/12/17 09:12 - Physical Exam General Appearance: Yes: Nourished, Appropriately Dressed. No: Apparent Distress HEENT: positive: EOMI, NATAN, Normal ENT Inspection Respiratory/Chest: positive: Lungs Clear, Normal Breath Sounds. negative: Chest Tender, Respiratory Distress Cardiovascular: positive: Regular Rhythm, Regular Rate, S1, S2 Gastrointestinal/Abdominal: positive: Normal Bowel Sounds, Flat, Soft. negative : Tender Musculoskeletal: positive: Normal Inspection Neurologic: positive: Fully Oriented, Alert, Normal Mood/Affect, Other (tremors) ED Treatment Course - LABORATORY CBC & Chemistry Diagram: 03/12/17 09:30 03/12/17 09:30 - RADIOLOGY Radiology Studies Ordered: Category Date Time Status HEAD CT WITHOUT CONTRAST [CT] Stat CT Scan 03/12/17 09:14 Ordered CHEST X-RAY PORTABLE* [RAD] Stat Radiology 03/12/17 09:14 Ordered SHOULDER-LEFT [RAD] Stat Radiology 03/12/17 09:26 Ordered Medical Decision Making - Medical Decision Making 03/12/17 13:42 All labs WNL EKG performed at 9:40:40 demonstrates rate of 113 bpm, rhythm of sinus tachycardia, axis equal to normal. no T wave inversions, no ST elevations. Patient presents some concerns that she might not be able to take care of herself due to weakness despite the fact that she is adamant she wants to go own and is independent due to friends helping her out during the day. 03/12/17 14:53 Patient went to the bathroom with help (not able to get out of bed on her own) and wasn't able to stand back up, starting screaming for help. Agrees to be admitted to inpatient med/surg under Dr. Vinny Dominguez for Adarsh *DC/Admit/Observation/Transfer Diagnosis at time of Disposition: Weakness, Falls - Discharge Dispostion Admit: Yes - Referrals Referrals: Jose Altamirano MD [Primary Care Provider] - - Patient Instructions - Post Discharge Activity
[2017-03-12 09:42] LABS: BASO % 0.7 % (0-2.0); HEMOGLOBIN 10.9 GM/dL (10.7-15.3); MCH 27.3 pg (25.7-33.7); MEAN CELL VOLUME 85.2 fl (80-96); MEAN PLT VOLUME 7.7 fl (7.5-11.1); MONO % 14.1 % (3.8-10.2); NEUT % 77.2 % (42.8-82.8); PLATELET COUNT 341 K/MM3 (134-434); RBC 3.99 M/mm3 (3.60-5.2); RDW 14.5 % (11.6-15.6); WHITE BLOOD COUNT 10.6 K/mm3 (4.0-10.0)
--- NOTE | 2017-03-12 09:59 | PDOC ---
Attending Attestation - HPI HPI: 03/12/17 12:14 The patient is a 86 year old female with a significant past medical history of hypertension, breast cancer (s/p b/l mastectomy/chemo/radiation in 1997), asthma , diverticulosis, and hyperlipidemia who presents to the ED s/p fall last night. The patient reports she fell out of bed around 10 pm last night because her walker was not next to her bed. She states she was unable to get up and was found at 8am this morning and brought into the ED. Denies pain. Denies any other symptoms. Patient is currently scheduled for a left shoulder surgery. 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 AOX3; Cranial Nerves 2-12 grossly c intact, Sensation intact to all extremities. Psych: normal mood, normal affect <Mery Mcrae - Last Filed: 03/12/17 12:48> - Resident Resident Name: Jaison Villasenor - ED Attending Attestation I have performed the following: I have examined & evaluated the patient, The case was reviewed & discussed with the resident, I agree w/resident's findings & plan, Exceptions are as noted - HPI HPI: 03/12/17 15:25 86 years old multiple medical problems with mechanical fall at home unable to get up. Here in the emergency Department patient unable to ambulate, she is generally weak. We'll hydrate and observe for further management care management to consult. - Medical Decision Making 03/12/17 15:26 86 years old with multiple medical problems presents to the emergency department status post seemingly mechanical fall secondary to weakness Here in the emergency department her workup has been essentially unremarkable her labs are within normal limits her imaging as no acute findings We attempted to stand the patient and ambulate her however she is to weak to return home and is a very high fall risk Our care management team has evaluated the patient. Given the high fall risk and patient's weakness will observe overnight hydrate reassess physical therapy consultation and care management consultation <Mak Padgett - Last Filed: 03/12/17 15:27> Heart Score/ECG Review #1 03/12/17 12:48 EKG performed at 9:40:40 demonstrates rate of 113 bpm, rhythm of sinus tachycardia, axis equal to normal. no T wave inversions, no ST elevations <Mery Mcrae - Last Filed: 03/12/17 12:48>
[2017-03-12] MEDS ORDERED: SODIUM CHLORIDE 0.9% 1000 ML INFUS.BAG IV ONE (10:00)
[2017-03-12 10:12] LABS: ALK PHOS 71 U/L (45-117); ANION GAP 10 (8-16); BILIRUBIN,TOTAL 0.9 mg/dL (0.2-1.0); BLOOD UREA NITROGEN 17 mg/dL (7-18); CALCIUM 7.6 mg/dL (8.5-10.1); CHLORIDE 104 mmol/L (98-107); CO2 23 mmol/L (21-32); GLUCOSE,RANDOM 122 mg/dL (74-106); POTASSIUM 4.3 mmol/L (3.5-5.1); SGOT/AST 31 U/L (15-37); SGPT/ALT 15 U/L (12-78); SODIUM 137 mmol/L (136-145); TOT PROT 6.3 g/dl (6.4-8.2)
[2017-03-12] MEDS ORDERED: CALCIUM GLUCONATE 10% - 1,000 MG/10 ML VIAL IVPB ONE (10:19)
[2017-03-12] MEDS ORDERED: CALCIUM GLUCONATE 10% - 1,000 MG/10 ML VIAL ONE (10:21)
[2017-03-12 12:43] LABS: URINE APPEARANCE SLCLOUDY; URINE BILIRUBIN NEGATIVE (NEGATIVE); URINE BLOOD 1+ (NEGATIVE); URINE COLOR YELLOW; URINE GLUCOSE (UA) NEGATIVE (NEGATIVE); URINE KETONE NEGATIVE (NEGATIVE); URINE LEUK ESTERASE NEGATIVE (NEGATIVE); URINE NITRITE NEGATIVE (NEGATIVE); URINE PROTEIN NEGATIVE (NEGATIVE); URINE UROBILINOGEN NEGATIVE mg/dL (0.2-1.0)
[2017-03-12 13:00] LABS: URIC ACID CRYSTALS RARE /hpf (NONE SEEN); URINE HYALINE CAST 4 /lpf
[2017-03-12] MEDS ORDERED: ACETAMINOPHEN INJECTION 100 ML IVPB ONE (16:08)
[2017-03-12] MEDS ORDERED: ACETAMINOPHEN 1000 MG/100 ML VIAL (NON FORMULARY) IVPB ONE (16:08)
[2017-03-12] MEDS: D5-1/2NS+20 MEQ KCL - 20 MEQ/1,000 ML INFUS.BAG IV SCH (19:42)
[2017-03-12] MEDS ORDERED: LEVOFLOXACIN 500 MG IVPB 500 MG/100 ML BAG IVPB ONE (19:45)
[2017-03-12] MEDS: HEPARIN NA (PORCINE) 5,000 UNITS/ML 1ML VIAL SQ SCH (22:14)
[2017-03-12] MEDS ORDERED: HEPARIN NA (PORCINE) 5,000 UNITS/ML 1ML VIAL ONE (23:23)
--- NOTE | 2017-03-13 09:50 | EKG ---
Test Reason : Blood Pressure : / mmHG Vent. Rate : 113 BPM Atrial Rate : 113 BPM P-R Int : 176 ms QRS Dur : 068 ms QT Int : 324 ms P-R-T Axes : 073 036 073 degrees QTc Int : 444 ms POOR DATA QUALITY, INTERPRETATION MAY BE ADVERSELY AFFECTED SINUS TACHYCARDIA WITH 1ST DEGREE A-V BLOCK NONSPECIFIC ST ABNORMALITY ABNORMAL ECG WHEN COMPARED WITH ECG OF 25-FEB-2017 17:20, VENT. RATE HAS INCREASED BY 49 BPM NONSPECIFIC T WAVE ABNORMALITY NOW EVIDENT IN LATERAL LEADS Confirmed by MARSHALL TEE MD ([id number]) on 03/13/2017 9:49:40 AM Referred By: Confirmed By:MARSHALL TEE MD
[2017-03-13 09:53] LABS: BASO % 0.7 % (0-2.0); HEMATOCRIT 29.3 % (32.4-45.2); HEMOGLOBIN 9.4 GM/dL (10.7-15.3); LYMPH % 8.7 % (8-40); MCH 27.1 pg (25.7-33.7); MCHC 32.1 g/dl (32.0-36.0); MEAN CELL VOLUME 84.7 fl (80-96); MEAN PLT VOLUME 8.3 fl (7.5-11.1); MONO % 13.5 % (3.8-10.2); NEUT % 77.1 % (42.8-82.8); PLATELET COUNT 261 K/MM3 (134-434); RBC 3.46 M/mm3 (3.60-5.2); WHITE BLOOD COUNT 10.4 K/mm3 (4.0-10.0)
[2017-03-13 09:56] LABS: CHLORIDE 107 mmol/L (98-107); SODIUM 139 mmol/L (136-145)
[2017-03-13 10:04] LABS: ALBUMIN 2.4 g/dl (3.4-5.0); ALK PHOS 60 U/L (45-117); ANION GAP 12 (8-16); BILIRUBIN,TOTAL 0.7 mg/dL (0.2-1.0); BLOOD UREA NITROGEN 13 mg/dL (7-18); CALCIUM 7.7 mg/dL (8.5-10.1); CO2 20 mmol/L (21-32); CREATININE 0.6 mg/dL (0.55-1.02); GLUCOSE,RANDOM 72 mg/dL (74-106); SGOT/AST 28 U/L (15-37); SGPT/ALT 14 U/L (12-78); TOT PROT 5.4 g/dl (6.4-8.2)
[2017-03-13] MEDS: HEPARIN NA (PORCINE) 5,000 UNITS/ML 1ML VIAL SQ SCH ×2 (10:41→22:28)
[2017-03-13] MEDS: ASPIRIN 81 MG CHEWABLE TABLETS PO SCH (10:41)
[2017-03-13] MEDS: SODIUM BICARBONATE 650 MG TABLET PO SCH (10:41)
[2017-03-13] MEDS: LISINOPRIL 5 MG TABLET (FP) PO SCH (10:41)
[2017-03-13] MEDS: CYANOCOBALAMIN 1,000 MCG TABLET (FP) PO SCH (10:42)
[2017-03-13] MEDS: ATENOLOL 25 MG TABLET (FP) PO SCH (10:42)
--- NOTE | 2017-03-13 10:43 | HP ---
Admitting History and Physical - Primary Care Physician PCP: Vinny Dominguez - Admission History of Present Illness: This is a 86 year old woman with PMHx of Hypertension, Breast Ca s/p b/l mastectomy/chemo/radiation in 1997), Asthma, Diverticulosis, Hyperlipidemia, Lung nodule --refused CAT scan who presented after a fall last night with impossibility to get up. Patient was unable to walk Last night Patient also developed fever 101 in the ER Patient given empiric antibiotics Rapid influenza screen was done--and negative cultures were sent patient admitted Patient seen by me this morning--- still in the ER-waiting bed- Awake/chronic ill appearance With complaints Denies chest pain/shortness of breath Mild anxiety present Now wants to go to rehabilitation--always refused Patient thinks--she needs rehabilitation to recoup Complains of left shoulder pain--- reports going to have surgery--- around May Patient was also admitted recently--Due to abdominal pain--few weeks ago Denies any abdominal pain today Afebrile today History Source: Patient Limitations to Obtaining History: No Limitations - Past Medical History Cardiovascular: Yes: HTN, Hyperlipdemia Pulmonary: Yes: Asthma, Bronchitis Gastrointestinal: Yes: Diverticulosis Infectious Disease: Yes: Other (Hx of recurrent URI's) Psych: Yes: Anxiety Musculoskeletal: Yes: Osteoarthritis, Other (sciatica) Rheumatology: Yes: Other (soft tissue aches & pains) ENT: Yes: Sinusitis - Past Surgical History Past Surgical History: Yes: Joint Replacement, Mastectomy (bilat x many yrs ago) - Smoking History Smoking history: Unknown if ever smoked Have you smoked in the past 12 months: No Aproximately how many cigarettes per day: 0 If you are a former smoker, when did you quit?: 1973 - Alcohol/Substance Use Hx Alcohol Use: No History of Substance Use: reports: None - Social History ADL: Independent History of Recent Travel: No Home Medications - Allergies Allergies/Adverse Reactions: Allergies Allergy/AdvReac Type Severity Reaction Status Date / Time egg Allergy Verified 03/12/17 09:11 egg yolk Allergy Verified 03/12/17 09:11 Sulfa (Sulfonamide Allergy Nausea Verified 03/12/17 09:11 Antibiotics) - Home Medications Home Medications: Ambulatory Orders Atenolol [Tenormin -] 25 mg PO DAILY 08/02/15 Zolpidem Tartrate [Ambien] 10 mg PO HS 03/11/16 Aspirin [ASA -] 81 mg PO DAILY 01/22/17 Benazepril HCl 5 mg PO DAILY 01/22/17 Cyanocobalamin [Vitamin B12 -] 1,000 mcg PO DAILY 01/22/17 Levofloxacin [Levaquin -] 250 mg PO DAILY@0600 #5 tablet 03/03/17 Metronidazole [Flagyl -] 500 mg PO TID #15 tablet 03/03/17 Sodium Bicarbonate - 650 mg PO DAILY #30 tablet 03/03/17 Review of Systems - Review of Systems Constitutional: reports: Fever, Weakness Eyes: reports: No Symptoms Neck: reports: No Symptoms Cardiovascular: reports: No Symptoms Respiratory: reports: No Symptoms Gastrointestinal: reports: No Symptoms Genitourinary: reports: No Symptoms Musculoskeletal: reports: Joint Pain (left shoulder) Neurological: reports: No Symptoms Psychiatric: reports: Anxiety Physical Examination Vital Signs: Vital Signs Temperature 98.4 F 03/13/17 09:29 Pulse Rate 105 H 03/13/17 09:29 Respiratory Rate 18 03/13/17 09:29 Blood Pressure 116/52 03/13/17 09:29 O2 Sat by Pulse Oximetry (%) 100 03/13/17 09:29 Constitutional: Yes: No Distress, Other (chronic ill appearance/week but no distress) Eyes: Yes: Conjunctiva Clear Neck: Yes: Supple Cardiovascular: Yes: Regular Rate and Rhythm Respiratory: Yes: CTA Bilaterally Gastrointestinal: Yes: Normal Bowel Sounds, Soft Edema: No Neurological: Yes: Alert Psychiatric: Yes: Alert Labs: CBC, BMP 03/13/17 09:00 03/13/17 09:00 Imaging - Results Chest X-ray: Report Reviewed Cat Scan: Report Reviewed EKG: Report Reviewed Problem List - Problems (1) Falls Code(s): W19.XXXA - UNSPECIFIED FALL, INITIAL ENCOUNTER (2) Weakness Code(s): R53.1 - WEAKNESS (3) Shoulder pain, left Code(s): M25.512 - PAIN IN LEFT SHOULDER Assessment/Plan Discussed with pt need physical therapy pain control abx f/u cultures will follow.
[2017-03-13] MEDS: LEVOFLOXACIN 500 MG IVPB 500 MG/100 ML BAG IVPB SCH (18:12)
[2017-03-13] MEDS: ACETAMINOPHEN 325 MG TABLET (FP) PO PRN (22:28)
[2017-03-14 07:42] LABS: BASO % 0.5 % (0-2.0); EOS % 0.3 % (0-4.5); HEMATOCRIT 26.4 % (32.4-45.2); HEMOGLOBIN 8.6 GM/dL (10.7-15.3); MCH 27.4 pg (25.7-33.7); MCHC 32.7 g/dl (32.0-36.0); MEAN CELL VOLUME 83.9 fl (80-96); MEAN PLT VOLUME 8.2 fl (7.5-11.1); MONO % 12.6 % (3.8-10.2); NEUT % 72.6 % (42.8-82.8); PLATELET COUNT 269 K/MM3 (134-434); RBC 3.14 M/mm3 (3.60-5.2); RDW 14.7 % (11.6-15.6); WHITE BLOOD COUNT 7.1 K/mm3 (4.0-10.0)
[2017-03-14 07:56] LABS: CHLORIDE 107 mmol/L (98-107); POTASSIUM 3.8 mmol/L (3.5-5.1); SODIUM 139 mmol/L (136-145)
[2017-03-14 08:02] LABS: ALBUMIN 2.2 g/dl (3.4-5.0); ALK PHOS 57 U/L (45-117); ANION GAP 8 (8-16); BILIRUBIN,TOTAL 0.7 mg/dL (0.2-1.0); BLOOD UREA NITROGEN 10 mg/dL (7-18); CALCIUM 7.5 mg/dL (8.5-10.1); CO2 24 mmol/L (21-32); CREATININE 0.5 mg/dL (0.55-1.02); GLUCOSE,RANDOM 70 mg/dL (74-106); SGOT/AST 30 U/L (15-37); SGPT/ALT 16 U/L (12-78)
[2017-03-14] MEDS: CYANOCOBALAMIN 1,000 MCG TABLET (FP) PO SCH (09:41)
[2017-03-14] MEDS: LISINOPRIL 5 MG TABLET (FP) PO SCH (09:42)
[2017-03-14] MEDS: ACETAMINOPHEN 325 MG TABLET (FP) PO PRN ×2 (09:42→20:41)
[2017-03-14] MEDS: ASPIRIN 81 MG CHEWABLE TABLETS PO SCH (09:42)
[2017-03-14] MEDS: SODIUM BICARBONATE 650 MG TABLET PO SCH (09:42)
[2017-03-14] MEDS: ATENOLOL 25 MG TABLET (FP) PO SCH (09:42)
[2017-03-14] MEDS: D5-1/2NS+20 MEQ KCL - 20 MEQ/1,000 ML INFUS.BAG IV SCH (09:43)
[2017-03-14] MEDS: LEVOFLOXACIN 500 MG IVPB 500 MG/100 ML BAG IVPB SCH (09:43)
[2017-03-14] MEDS: HEPARIN NA (PORCINE) 5,000 UNITS/ML 1ML VIAL SQ SCH ×3 (09:43→22:20)
--- NOTE | 2017-03-14 14:44 | PN ---
Progress Note (short form) - Note Progress Note: anxious now wants to go home when better dont want to go to rehab afebrile Vital Signs Temp 98.4 F 03/14/17 10:00 Pulse 87 03/14/17 10:00 Resp 16 03/14/17 10:00 BP 103/71 03/14/17 10:00 Pulse Ox 100 03/13/17 16:36 Intake & Output 03/13/17 03/14/17 03/14/17 23:59 11:59 23:59 Intake Total 550 Balance 550 Weight 120 lb Intake: Oral 550 Other: Voiding Method Toilet Diaper # Unmeasured Voids Void 2 1 Bowel Movement No Height 12 in Active Medications Acetaminophen (Tylenol -) 650 mg PO Q4H PRN PRN Reason: FEVER Last Admin: 03/14/17 09:42 Dose: 650 mg Aspirin (Asa -) 81 mg PO DAILY [facility] Last Admin: 03/14/17 09:42 Dose: 81 mg Atenolol (Tenormin -) 25 mg PO DAILY [facility] Last Admin: 03/14/17 09:42 Dose: 25 mg Cyanocobalamin (Vitamin B12 -) 1,000 mcg PO DAILY [facility] Last Admin: 03/14/17 09:41 Dose: 1,000 mcg Heparin Sodium (Porcine) (Heparin -) 5,000 unit SQ BID [facility] Last Admin: 03/14/17 09:43 Dose: 5,000 unit Levofloxacin (Levaquin 500 Mg Premixed Ivpb -) 500 mg in 100 mls @ 100 mls/hr IVPB DAILY [facility] Last Admin: 03/14/17 09:43 Dose: 100 mls/hr Lisinopril (Prinivil) 5 mg PO DAILY [facility] Last Admin: 03/14/17 09:42 Dose: 5 mg Sodium Bicarbonate (Sodium Bicarbonate -) 650 mg PO DAILY [facility] Last Admin: 03/14/17 09:42 Dose: 650 mg CBC, BMP 03/14/17 06:00 03/14/17 06:00 Physical Examination Constitutional: Yes: No Distress, Other (chronic ill appearance/week but no distress) Eyes: Yes: Conjunctiva Clear Neck: Yes: Supple/ no jvd Cardiovascular: Yes: Regular Rate and Rhythm Respiratory: Yes: CTA Bilaterally Gastrointestinal: Yes: Normal Bowel Sounds, Soft Edema: No Neurological: Yes: Alert Psychiatric: Yes: Alert Imaging - Results Chest X-ray: Report Reviewed Cat Scan: Report Reviewed EKG: Report Reviewed Assessment/Plan stable need physical therapy pain control abx f/u cultures will follow. Problem List - Problems (1) Falls Code(s): W19.XXXA - UNSPECIFIED FALL, INITIAL ENCOUNTER (2) Weakness Code(s): R53.1 - WEAKNESS (3) Shoulder pain, left Code(s): M25.512 - PAIN IN LEFT SHOULDER
[2017-03-15] MEDS: HEPARIN NA (PORCINE) 5,000 UNITS/ML 1ML VIAL SQ SCH (09:20)
[2017-03-15] MEDS: LISINOPRIL 5 MG TABLET (FP) PO SCH (09:20)
[2017-03-15] MEDS: SODIUM BICARBONATE 650 MG TABLET PO SCH (09:20)
[2017-03-15] MEDS: ASPIRIN 81 MG CHEWABLE TABLETS PO SCH (09:20)
[2017-03-15] MEDS: ATENOLOL 25 MG TABLET (FP) PO SCH (09:20)
[2017-03-15] MEDS: CYANOCOBALAMIN 1,000 MCG TABLET (FP) PO SCH (09:20)
[2017-03-15] MEDS: LEVOFLOXACIN 500 MG IVPB 500 MG/100 ML BAG IVPB SCH ×2 (09:21→11:43)
[2017-03-15] MEDS ORDERED: guaiFENesin 200 MG/10 ML 10 ML UNIT-DOSE CUPS PO PRN (11:30)
--- NOTE | 2017-03-15 11:34 | DS ---
Physical Examination Vital Signs: Vital Signs Temperature 98.6 F 03/15/17 05:46 Pulse Rate 67 03/15/17 05:46 Respiratory Rate 18 03/15/17 05:46 Blood Pressure 108/51 03/15/17 05:46 O2 Sat by Pulse Oximetry (%) 100 03/14/17 21:00 Findings/Remarks: sitting in chair alert and awake wants to go home today dont want to go to rehab denies cp/sob/abd pain. afebrile all cultures -ve so far. Constitutional: Yes: No Distress, Calm Eyes: Yes: Conjunctiva Clear Neck: Yes: Supple, Trachea Midline Cardiovascular: Yes: Regular Rate and Rhythm Respiratory: Yes: CTA Bilaterally Gastrointestinal: Yes: Normal Bowel Sounds, Soft Edema: No Neurological: Yes: Alert Psychiatric: Yes: Alert Labs: CBC, BMP 03/14/17 06:00 03/14/17 06:00 Discharge Summary Reason For Visit: WEAKNESS,FALL Current Active Problems Falls (Acute) Weakness (Acute) Hospital Course: This is a 86 year old woman with PMHx of Hypertension, Breast Ca s/p b/l mastectomy/chemo/radiation in 1997), Asthma, Diverticulosis, Hyperlipidemia, Lung nodule --refused CAT scan who presented after a fall last night with inability to get up. Mechanical fall. Patient also had fever 101 in the ER Patient given empiric antibiotics Rapid influenza screen was done--and negative cultures were sent-- joy cxr -ve patient was admitted now doing well wants to go home refuses rehab dry cough+ decrease in h/h no obvious bleeding will check cbc today if stable- will d/c home pt advised to follow with her pmd in one week. pt in agreement. discussed with nursing staff will send off abx d/c time 36 min in examining/ documenting and coordating care. Condition: Improved - Instructions Referrals: Jose Altamirano MD [Primary Care Provider] - Disposition: HOME - Home Medications Comprehensive Discharge Medication List: Ambulatory Orders Atenolol [Tenormin -] 25 mg PO DAILY 08/02/15 Aspirin [ASA -] 81 mg PO DAILY 01/22/17 Benazepril HCl 5 mg PO DAILY 01/22/17 Cyanocobalamin [Vitamin B12 -] 1,000 mcg PO DAILY 01/22/17 Acetaminophen [Tylenol .Regular Strength -] 650 mg PO Q4H PRN tablet 03/15/17 Guaifenesin [Robitussin -] 10 ml PO Q6H PRN cup 03/15/17
[2017-03-15 12:14] LABS: BASO % 1.1 % (0-2.0); EOS % 0.9 % (0-4.5); HEMATOCRIT 31.1 % (32.4-45.2); HEMOGLOBIN 9.9 GM/dL (10.7-15.3); LYMPH % 19.4 % (8-40); MCHC 31.7 g/dl (32.0-36.0); MEAN CELL VOLUME 85.2 fl (80-96); MEAN PLT VOLUME 8.2 fl (7.5-11.1); MONO % 9.9 % (3.8-10.2); NEUT % 68.7 % (42.8-82.8); PLATELET COUNT 315 K/MM3 (134-434); RBC 3.65 M/mm3 (3.60-5.2); RDW 15.3 % (11.6-15.6); WHITE BLOOD COUNT 6.7 K/mm3 (4.0-10.0)
[2017-03-15 12:22] VITALS: BP 112/50; PULSE 79; TEMP 98.5
== END 2017-03-15 14:19 | disposition home or self-care (01) | DRG 92 ==
LOC: JER 09:02 → JERBED 14:52 → J8W 03-13 15:50
PROVIDERS: ADMIT Internal Medicine; ATTEND Internal Medicine
DX: R26.81 Unsteadiness on feet (principal); I69.359 Hemiplegia and hemiparesis following cerebral infarction affecting unspecified side; R53.1 Weakness; M25.512 Pain in left shoulder; R29.6 Repeated falls; I10 Essential (primary) hypertension; E78.5 Hyperlipidemia, unspecified
CPT/HCPCS: 36415; 70450-TC; 71045-TC; 73030-TC-LT; 80053; 81003; 81015; 82550; 82553; 84443; 84484; 85025; 87040; 87086; 87804; 93005; 93010; 99284-25; J1644

== ENCOUNTER 2020-01-25 19:41 | Inpatient (IN) | payer OTHER, MEDICARE ==
[2020-01-25] MEDS ORDERED: LIDOCAINE HCL 2% JELLY 10 ML CARTRIDGE PR STA (20:36)
[2020-01-25] MEDS ORDERED: LIDOCAINE HCL 2% JELLY 10 ML CARTRIDGE ONE (20:44)
[2020-01-25] MEDS ORDERED: LACTATED RINGERS SOLUTION 1000 ML INFUS.BAG IV ONE (20:45)
[2020-01-25] MEDS ORDERED: ACETAMINOPHEN 1000 MG/100 ML VIAL (NON FORMULARY) IVPB ONE (21:08)
[2020-01-25] MEDS ORDERED: ACETAMINOPHEN INJECTION 100 ML IVPB ONE (21:19)
[2020-01-25 21:25] LABS: BASO % 0.5 % (0-2.0); EOS % 0.9 % (0-4.5); HEMATOCRIT 31.6 % (32.4-45.2); HEMOGLOBIN 10.3 GM/dL (10.7-15.3); LYMPH % 8.8 % (8-40); MCH 30.6 pg (25.7-33.7); MCHC 32.7 g/dl (32.0-36.0); MEAN CELL VOLUME 93.7 fl (80-96); MEAN PLT VOLUME 7.5 fl (7.5-11.1); MONO % 7.2 % (3.8-10.2); NEUT % 82.6 % (42.8-82.8); PLATELET COUNT 248 K/MM3 (134-434); RBC 3.37 M/mm3 (3.60-5.2); RDW 13.6 % (11.6-15.6)
[2020-01-25 21:43] LABS: POTASSIUM 5.6 mmol/L (3.5-5.1)
[2020-01-25 21:45] LABS: ALBUMIN 3.7 g/dl (3.4-5.0); BLOOD UREA NITROGEN 17.9 mg/dL (7-18); CALCIUM 8.6 mg/dL (8.5-10.1)
[2020-01-25 21:49] LABS: CREATININE 0.8 mg/dL (0.55-1.3)
[2020-01-25 21:50] LABS: BILIRUBIN,TOTAL 0.4 mg/dL (0.2-1)
[2020-01-25 21:57] LABS: MAGNESIUM 2.5 mg/dL (1.8-2.4)
[2020-01-25 22:00] LABS: PHOSPHOROUS 4.9 mg/dL (2.5-4.9)
[2020-01-25 22:08] LABS: PH,URINE 5.5 (5.0-8.0); URINE APPEARANCE CLEAR; URINE BILIRUBIN NEGATIVE (NEGATIVE); URINE COLOR YELLOW; URINE GLUCOSE (UA) NEGATIVE (NEGATIVE); URINE KETONE NEGATIVE (NEGATIVE); URINE LEUK ESTERASE NEGATIVE (NEGATIVE); URINE NITRITE NEGATIVE (NEGATIVE); URINE PROTEIN NEGATIVE (NEGATIVE); URINE UROBILINOGEN 0.2 mg/dL (0.2-1.0)
[2020-01-26] MEDS: DEXTROSE 5%-0.45% SALINE 1,000 ML IV SCH (05:34)
[2020-01-26 07:55] LABS: BASO % 0.4 % (0-2.0); EOS % 1.2 % (0-4.5); HEMATOCRIT 29.3 % (32.4-45.2); HEMOGLOBIN 9.7 GM/dL (10.7-15.3); LYMPH % 13.4 % (8-40); MCH 30.8 pg (25.7-33.7); MCHC 33.2 g/dl (32.0-36.0); MEAN CELL VOLUME 92.8 fl (80-96); MEAN PLT VOLUME 7.5 fl (7.5-11.1); MONO % 7.9 % (3.8-10.2); NEUT % 77.1 % (42.8-82.8); PLATELET COUNT 218 K/MM3 (134-434); RBC 3.16 M/mm3 (3.60-5.2); RDW 13.3 % (11.6-15.6); WHITE BLOOD COUNT 5.4 K/mm3 (4.0-10.0)
[2020-01-26 08:01] LABS: POTASSIUM 4.9 mmol/L (3.5-5.1)
[2020-01-26 08:12] LABS: ALBUMIN 3.2 g/dl (3.4-5.0); BLOOD UREA NITROGEN 13.5 mg/dL (7-18); CALCIUM 8.4 mg/dL (8.5-10.1); MAGNESIUM 2.5 mg/dL (1.8-2.4)
[2020-01-26 08:16] LABS: CREATININE 0.7 mg/dL (0.55-1.3)
[2020-01-26 08:17] LABS: BILIRUBIN,TOTAL 0.2 mg/dL (0.2-1)
[2020-01-26 08:18] LABS: TOT PROT 5.7 g/dl (6.4-8.2)
[2020-01-27] MEDS: DEXTROSE 5%-0.45% SALINE 1,000 ML IV SCH (05:27)
[2020-01-27 08:35] LABS: BASO % 0.4 % (0-2.0); EOS % 2.1 % (0-4.5); HEMATOCRIT 31.8 % (32.4-45.2); HEMOGLOBIN 10.2 GM/dL (10.7-15.3); MCH 29.7 pg (25.7-33.7); MEAN CELL VOLUME 92.8 fl (80-96); MEAN PLT VOLUME 7.1 fl (7.5-11.1); MONO % 9.3 % (3.8-10.2); NEUT % 76.2 % (42.8-82.8); PLATELET COUNT 257 K/MM3 (134-434); RBC 3.42 M/mm3 (3.60-5.2); RDW 13.1 % (11.6-15.6); RETICULOCYTES 1.09 % (0.5-1.5); WHITE BLOOD COUNT 6.6 K/mm3 (4.0-10.0)
[2020-01-27 08:43] LABS: CHLORIDE 99 mmol/L (98-107); POTASSIUM 4.6 mmol/L (3.5-5.1); SODIUM 134 mmol/L (136-145)
[2020-01-27 08:45] LABS: ALBUMIN 3.4 g/dl (3.4-5.0); ANION GAP 7 MMOL/L (8-16); BLOOD UREA NITROGEN 7.4 mg/dL (7-18); CALCIUM 8.5 mg/dL (8.5-10.1); CO2 28 mmol/L (21-32); GLUCOSE,RANDOM 92 mg/dL (74-106)
[2020-01-27 08:48] LABS: CREATININE 0.6 mg/dL (0.55-1.3); SGOT/AST 14 U/L (15-37); SGPT/ALT 15 U/L (13-61)
[2020-01-27 08:49] LABS: IRON SERUM 35 ug/dL (50-175); TOT PROT 6.2 g/dl (6.4-8.2); TOTAL IRON BINDING CAPACITY 231 ug/dL (250-450)
[2020-01-27 08:50] LABS: LDH 178 U/L (84-246)
[2020-01-27 08:51] LABS: ALK PHOS 153 U/L (45-117)
[2020-01-27 09:16] LABS: BILIRUBIN,TOTAL 0.4 mg/dL (0.2-1)
[2020-01-27 14:20] VITALS: BMI 15.0
[2020-01-27] MEDS ORDERED: FAMOTIDINE 20 MG TABLET PO ONE (18:41)
[2020-01-27] MEDS ORDERED: IRON SUCROSE INJECTION 200 MG in SODIUM CHLORIDE 90 ML IVPB ONE (21:30)
[2020-01-28 10:20] VITALS: BP 138/72; PULSE 85; TEMP 99.1
[2020-01-28 11:08] LABS: TRANSGLUTAMINASE IGA < 2 U/mL (0-3); TRANSGLUTAMINASE IGG < 2 U/mL (0-5)
== END 2020-01-28 14:24 | disposition home or self-care (01) | DRG 392 ==
LOC: JER 19:41 → JERBED 22:14 → J6WEST-2 01-27 09:33
PROVIDERS: ADMIT Internal Medicine; ATTEND Internal Medicine
DX: A09 Infectious gastroenteritis and colitis, unspecified (principal); I10 Essential (primary) hypertension; E78.5 Hyperlipidemia, unspecified; J45.909 Unspecified asthma, uncomplicated; Z85.3 Personal history of malignant neoplasm of breast; K62.89 Other specified diseases of anus and rectum; K64.4 Residual hemorrhoidal skin tags; D64.9 Anemia, unspecified; K59.09 Other constipation
CPT/HCPCS: 36415; 74177-TC; 80053; 81003; 82272; 82607; 82728; 82746; 83516; 83540; 83550; 83605; 83615; 83735; 84100; 84132; 84155; 84165; 85025; 85045; 87086; 93005; 93010; 97116-GP; 97162-GP; 99285-25; C9803; J0131; J1756; Q9967; U0003

== ENCOUNTER 2020-04-09 19:13 | Inpatient (IN) | payer OTHER, MEDICARE ==
[2020-04-09] MEDS ORDERED: SODIUM CHLORIDE 500 ML IV STA (21:09)
[2020-04-09] MEDS ORDERED: ACETAMINOPHEN 1000 MG/100 ML VIAL (NON FORMULARY) IVPB ONE (23:13)
[2020-04-09 23:42] LABS: BASO % 0.1 % (0-2.0); HEMATOCRIT 34.7 % (32.4-45.2); HEMOGLOBIN 11.3 GM/dL (10.7-15.3); LYMPH % 3.4 % (8-40); MCH 30.4 pg (25.7-33.7); MCHC 32.6 g/dl (32.0-36.0); MEAN CELL VOLUME 93.2 fl (80-96); MEAN PLT VOLUME 7.8 fl (7.5-11.1); MONO % 4.2 % (3.8-10.2); NEUT % 92.3 % (42.8-82.8); PLATELET COUNT 287 K/MM3 (134-434); RBC 3.72 M/mm3 (3.60-5.2); RDW 14.7 % (11.6-15.6); WHITE BLOOD COUNT 10.2 K/mm3 (4.0-10.0)
[2020-04-10 00:01] LABS: POTASSIUM 5.2 mmol/L (3.5-5.1)
[2020-04-10 00:03] LABS: CALCIUM 8.9 mg/dL (8.5-10.1)
[2020-04-10 00:04] LABS: ALBUMIN 3.6 g/dl (3.4-5.0)
[2020-04-10 00:07] LABS: CREATININE 1.6 mg/dL (0.55-1.3)
[2020-04-10 00:08] LABS: BILIRUBIN,TOTAL 0.5 mg/dL (0.2-1)
[2020-04-10 00:09] LABS: TOT PROT 6.6 g/dl (6.4-8.2)
[2020-04-10 00:34] LABS: ANISOCYTOSIS 1+; MACROCYTOSIS 1+; OVALOCYTE 1+; PLATELET ESTIMATE NORMAL
[2020-04-10] MEDS ORDERED: LACTATED RINGERS SOLUTION 1000 ML INFUS.BAG IV ONE (01:03)
[2020-04-10] MEDS ORDERED: LACTATED RINGERS SOLUTION 1,000 ML IV SCH (04:45)
[2020-04-10] MEDS ORDERED: PIPERACILLIN/TAZOB 2.25 GM 2.25 GM in DEXTROSE 5%-WATER - 50 ML IVPB SCH ×2 (05:00→06:30)
[2020-04-10] MEDS ORDERED: PIPERACILLIN/TAZOB 2.25 GM 2.25 GM/50 ML BAG IVPB ONE (06:50)
[2020-04-10] MEDS: SODIUM CHLORIDE 0.45% 1,000 ML IV SCH ×2 (07:56→16:26)
[2020-04-10 08:04] LABS: HEMATOCRIT 28.4 % (32.4-45.2); HEMOGLOBIN 9.6 GM/dL (10.7-15.3); MCH 31.2 pg (25.7-33.7); MCHC 33.9 g/dl (32.0-36.0); MEAN PLT VOLUME 7.9 fl (7.5-11.1); PLATELET COUNT 233 K/MM3 (134-434); RBC 3.09 M/mm3 (3.60-5.2); RDW 14.5 % (11.6-15.6); WHITE BLOOD COUNT 11.9 K/mm3 (4.0-10.0)
[2020-04-10 08:19] LABS: POTASSIUM 5.9 mmol/L (3.5-5.1)
[2020-04-10 08:21] LABS: BLOOD UREA NITROGEN 31.5 mg/dL (7-18); CALCIUM 8.5 mg/dL (8.5-10.1)
[2020-04-10 08:24] LABS: CREATININE 1.4 mg/dL (0.55-1.3)
[2020-04-10] MEDS ORDERED: BENAZEPRIL HCL 5 MG PO SCH (10:00)
[2020-04-10] MEDS ORDERED: ATENOLOL 25 MG TABLET (FP) PO SCH (10:00)
[2020-04-10] MEDS ORDERED: SODIUM POLYSTYRENE SULFONATE 15 GM/60 ML BOTTLE PO ONE (12:51)
[2020-04-10] MEDS ORDERED: cefTRIAXone SODIUM 1 GM VIAL ONE (13:13)
[2020-04-10] MEDS ORDERED: DEXTROSE 5%-WATER - 50 ML IVPB ONE (13:13)
[2020-04-10] MEDS: CEFTRIAXONE 1 GM in DEXTROSE 5%-WATER - 50 ML IVPB SCH (13:29)
[2020-04-10 13:46] VITALS: BMI 16.9
[2020-04-10] MEDS ORDERED: FAMOTIDINE 20 MG/50 ML IVPB 20 MG/50 ML MG IVPB SCH (14:45)
[2020-04-10] MEDS: ACETAMINOPHEN 325 MG TABLET (FP) PO PRN (14:55)
[2020-04-10] MEDS: VANCOMYCIN 250 MG/5 ML ORAL SOLUTION PO SCH (17:44)
[2020-04-10] MEDS: HEPARIN NA (PORCINE) 5,000 UNITS/ML 1ML VIAL SQ SCH (21:36)
[2020-04-10] MEDS: POLYETHYLENE GLYCOL 3350 119 GM BTL PO SCH (21:36)
[2020-04-11] MEDS: VANCOMYCIN 250 MG/5 ML ORAL SOLUTION PO SCH ×4 (00:28→17:54)
[2020-04-11] MEDS: SODIUM CHLORIDE 0.45% 1,000 ML IV SCH (05:59)
[2020-04-11 08:00] LABS: BASO % 0.1 % (0-2.0); EOS % 0.1 % (0-4.5); HEMATOCRIT 23.1 % (32.4-45.2); LYMPH % 6.3 % (8-40); MCH 31.7 pg (25.7-33.7); MCHC 34.8 g/dl (32.0-36.0); MEAN CELL VOLUME 91.3 fl (80-96); MEAN PLT VOLUME 7.7 fl (7.5-11.1); MONO % 8.7 % (3.8-10.2); NEUT % 84.8 % (42.8-82.8); PLATELET COUNT 188 K/MM3 (134-434); RBC 2.54 M/mm3 (3.60-5.2); RDW 14.6 % (11.6-15.6); WHITE BLOOD COUNT 9.5 K/mm3 (4.0-10.0)
[2020-04-11 08:06] LABS: POTASSIUM 4.3 mmol/L (3.5-5.1)
[2020-04-11 08:08] LABS: BLOOD UREA NITROGEN 38.4 mg/dL (7-18); CALCIUM 7.5 mg/dL (8.5-10.1)
[2020-04-11 08:13] LABS: BILIRUBIN,TOTAL 0.4 mg/dL (0.2-1)
[2020-04-11 08:26] LABS: ALBUMIN 2.5 g/dl (3.4-5.0)
[2020-04-11] MEDS ORDERED: cefTRIAXone SODIUM 1 GM VIAL ONE (10:45)
[2020-04-11] MEDS ORDERED: DEXTROSE 5%-WATER - 50 ML IVPB ONE (10:45)
[2020-04-11] MEDS: CEFTRIAXONE 1 GM in DEXTROSE 5%-WATER - 50 ML IVPB SCH (10:55)
[2020-04-11] MEDS: POLYETHYLENE GLYCOL 3350 119 GM BTL PO SCH ×2 (10:55→21:01)
[2020-04-11] MEDS: HEPARIN NA (PORCINE) 5,000 UNITS/ML 1ML VIAL SQ SCH (10:55)
[2020-04-11 10:56] LABS: ANISOCYTOSIS 1+; MACROCYTOSIS 0; OVALOCYTE 1+; PLATELET ESTIMATE NORMAL
[2020-04-11] MEDS: PANTOPRAZOLE SODIUM 40 MG VIAL IVPUSH SCH (14:47)
[2020-04-11] MEDS: HYDROCORTISONE 2.5% TOPICAL CREAM 30 GM TUBE TP SCH ×2 (14:47→21:01)
[2020-04-11] MEDS: NYSTATIN 100,000 UNIT/GM TOPICAL CREAM 15 GM TUBE TP SCH ×2 (14:47→21:01)
[2020-04-11] MEDS: DEXTROSE 5%-NORMAL SALINE 1,000 ML IV SCH (14:48)
[2020-04-11] MEDS ORDERED: PT OWN MED DRAWER 7, Y5N ONE (20:12)
[2020-04-12] MEDS: VANCOMYCIN 250 MG/5 ML ORAL SOLUTION PO SCH ×3 (01:04→10:59)
[2020-04-12] MEDS: DEXTROSE 5%-NORMAL SALINE 1,000 ML IV SCH ×2 (05:23→13:25)
[2020-04-12 07:51] LABS: HEMATOCRIT 22.7 % (32.4-45.2); HEMOGLOBIN 7.6 GM/dL (10.7-15.3); MCH 30.7 pg (25.7-33.7); MCHC 33.5 g/dl (32.0-36.0); MEAN CELL VOLUME 91.7 fl (80-96); PLATELET COUNT 194 K/MM3 (134-434); RBC 2.47 M/mm3 (3.60-5.2); RDW 14.5 % (11.6-15.6); WHITE BLOOD COUNT 8.2 K/mm3 (4.0-10.0)
[2020-04-12 08:24] LABS: POTASSIUM 3.8 mmol/L (3.5-5.1)
[2020-04-12 08:29] LABS: ALBUMIN 2.3 g/dl (3.4-5.0); BLOOD UREA NITROGEN 23.7 mg/dL (7-18); CALCIUM 7.9 mg/dL (8.5-10.1)
[2020-04-12 08:33] LABS: CREATININE 0.7 mg/dL (0.55-1.3)
[2020-04-12 08:35] LABS: BILIRUBIN,TOTAL 0.3 mg/dL (0.2-1); TOT PROT 4.7 g/dl (6.4-8.2)
[2020-04-12] MEDS ORDERED: cefTRIAXone SODIUM 1 GM VIAL ONE (09:43)
[2020-04-12] MEDS ORDERED: DEXTROSE 5%-WATER - 50 ML IVPB ONE (09:43)
[2020-04-12] MEDS: PANTOPRAZOLE SODIUM 40 MG VIAL IVPUSH SCH (10:05)
[2020-04-12] MEDS: CEFTRIAXONE 1 GM in DEXTROSE 5%-WATER - 50 ML IVPB SCH (10:05)
[2020-04-12] MEDS: NYSTATIN 100,000 UNIT/GM TOPICAL CREAM 15 GM TUBE TP SCH ×2 (10:07→21:10)
[2020-04-12] MEDS: POLYETHYLENE GLYCOL 3350 119 GM BTL PO SCH ×2 (10:07→21:10)
[2020-04-12] MEDS: HYDROCORTISONE 2.5% TOPICAL CREAM 30 GM TUBE TP SCH ×2 (10:07→21:10)
[2020-04-12] MEDS ORDERED: IRON SUCROSE INJECTION 200 MG in SODIUM CHLORIDE 90 ML IVPB ONE (11:12)
[2020-04-13] MEDS: DEXTROSE 5%-NORMAL SALINE 1,000 ML IV SCH ×2 (00:59→17:06)
[2020-04-13 07:23] LABS: HEMATOCRIT 24.8 % (32.4-45.2); HEMOGLOBIN 8.3 GM/dL (10.7-15.3); MCH 30.9 pg (25.7-33.7); MCHC 33.6 g/dl (32.0-36.0); PLATELET COUNT 221 K/MM3 (134-434); RDW 14.4 % (11.6-15.6); WHITE BLOOD COUNT 6.8 K/mm3 (4.0-10.0)
[2020-04-13 07:34] LABS: POTASSIUM 3.6 mmol/L (3.5-5.1)
[2020-04-13 07:42] LABS: BLOOD UREA NITROGEN 11.2 mg/dL (7-18); CALCIUM 7.9 mg/dL (8.5-10.1); CREATININE 0.5 mg/dL (0.55-1.3)
[2020-04-13] MEDS ORDERED: cefTRIAXone SODIUM 1 GM VIAL ONE (08:33)
[2020-04-13] MEDS ORDERED: DEXTROSE 5%-WATER - 50 ML IVPB ONE (08:34)
[2020-04-13] MEDS: CEFTRIAXONE 1 GM in DEXTROSE 5%-WATER - 50 ML IVPB SCH (09:00)
[2020-04-13] MEDS: HYDROCORTISONE 2.5% TOPICAL CREAM 30 GM TUBE TP SCH ×2 (09:01→22:58)
[2020-04-13] MEDS: NYSTATIN 100,000 UNIT/GM TOPICAL CREAM 15 GM TUBE TP SCH ×2 (09:01→22:57)
[2020-04-13] MEDS: POLYETHYLENE GLYCOL 3350 119 GM BTL PO SCH ×2 (12:38→21:24)
[2020-04-14 08:25] LABS: BASO % 0.3 % (0-2.0); EOS % 2.7 % (0-4.5); HEMATOCRIT 25.3 % (32.4-45.2); HEMOGLOBIN 8.5 GM/dL (10.7-15.3); LYMPH % 12.8 % (8-40); MCH 30.7 pg (25.7-33.7); MCHC 33.7 g/dl (32.0-36.0); MEAN CELL VOLUME 91.2 fl (80-96); MEAN PLT VOLUME 7.5 fl (7.5-11.1); MONO % 8.2 % (3.8-10.2); PLATELET COUNT 277 K/MM3 (134-434); RBC 2.77 M/mm3 (3.60-5.2); RDW 14.6 % (11.6-15.6); WHITE BLOOD COUNT 6.9 K/mm3 (4.0-10.0)
[2020-04-14 08:36] LABS: POTASSIUM 3.1 mmol/L (3.5-5.1)
[2020-04-14 08:40] LABS: ALBUMIN 2.5 g/dl (3.4-5.0); BLOOD UREA NITROGEN 5.7 mg/dL (7-18)
[2020-04-14 08:43] LABS: CREATININE 0.4 mg/dL (0.55-1.3)
[2020-04-14 08:45] LABS: BILIRUBIN,TOTAL 0.2 mg/dL (0.2-1)
[2020-04-14] MEDS ORDERED: DEXTROSE 5%-WATER - 50 ML IVPB ONE (10:06)
[2020-04-14] MEDS ORDERED: cefTRIAXone SODIUM 1 GM VIAL ONE (10:06)
[2020-04-14] MEDS: CEFTRIAXONE 1 GM in DEXTROSE 5%-WATER - 50 ML IVPB SCH (10:17)
[2020-04-14] MEDS: POLYETHYLENE GLYCOL 3350 119 GM BTL PO SCH ×2 (10:17→20:59)
[2020-04-14] MEDS: NYSTATIN 100,000 UNIT/GM TOPICAL CREAM 15 GM TUBE TP SCH ×2 (10:19→20:59)
[2020-04-14] MEDS: HYDROCORTISONE 2.5% TOPICAL CREAM 30 GM TUBE TP SCH ×2 (10:20→20:59)
[2020-04-14] MEDS ORDERED: PT OWN MED DRAWER 7, Y5N ONE (12:48)
[2020-04-14] MEDS: MULTIVIT-MINERALS ORAL LIQUID PO SCH (12:54)
[2020-04-14] MEDS ORDERED: POTASSIUM CHLORIDE TABS 20 MEQ TABLET.ER (FP) PO ONE (17:56)
[2020-04-14] MEDS: ACETAMINOPHEN 325 MG TABLET (FP) PO PRN (20:59)
[2020-04-15] MEDS ORDERED: DEXTROSE 5%-WATER - 50 ML IVPB ONE (08:42)
[2020-04-15] MEDS ORDERED: cefTRIAXone SODIUM 1 GM VIAL ONE (08:42)
[2020-04-15] MEDS: CEFTRIAXONE 1 GM in DEXTROSE 5%-WATER - 50 ML IVPB SCH (09:39)
[2020-04-15] MEDS ORDERED: PT OWN MED DRAWER 7, Y5N ONE (09:43)
[2020-04-15] MEDS: POLYETHYLENE GLYCOL 3350 119 GM BTL PO SCH ×3 (09:43→21:52)
[2020-04-15] MEDS: MULTIVIT-MINERALS ORAL LIQUID PO SCH (09:44)
[2020-04-15] MEDS: ACETAMINOPHEN 325 MG TABLET (FP) PO PRN (09:45)
[2020-04-15] MEDS: NYSTATIN 100,000 UNIT/GM TOPICAL CREAM 15 GM TUBE TP SCH ×2 (09:52→21:47)
[2020-04-15] MEDS: HYDROCORTISONE 2.5% TOPICAL CREAM 30 GM TUBE TP SCH ×2 (09:52→21:47)
[2020-04-15 12:16] LABS: BASO % 0.5 % (0-2.0); EOS % 0.3 % (0-4.5); HEMATOCRIT 26.1 % (32.4-45.2); HEMOGLOBIN 8.8 GM/dL (10.7-15.3); LYMPH % 10.1 % (8-40); MCH 30.7 pg (25.7-33.7); MCHC 33.6 g/dl (32.0-36.0); MEAN CELL VOLUME 91.3 fl (80-96); MEAN PLT VOLUME 8.2 fl (7.5-11.1); MONO % 15.4 % (3.8-10.2); NEUT % 73.7 % (42.8-82.8); PLATELET COUNT 294 K/MM3 (134-434); RBC 2.86 M/mm3 (3.60-5.2); RDW 14.8 % (11.6-15.6); WHITE BLOOD COUNT 8.1 K/mm3 (4.0-10.0)
[2020-04-15 12:48] LABS: POTASSIUM 5.1 mmol/L (3.5-5.1)
[2020-04-15 12:51] LABS: ALBUMIN 2.4 g/dl (3.4-5.0); BLOOD UREA NITROGEN 4.6 mg/dL (7-18)
[2020-04-15 12:54] LABS: CREATININE 0.5 mg/dL (0.55-1.3); URIC ACID 3.5 mg/dL (2.6-7.2)
[2020-04-15 12:56] LABS: BILIRUBIN,TOTAL 0.5 mg/dL (0.2-1); TOT PROT 5.6 g/dl (6.4-8.2)
[2020-04-15 13:03] LABS: ERYTHROCYTE SEDIMENTATION RATE 67 mm/hr (0-30)
[2020-04-15 19:19] LABS: URINE APPEARANCE CLEAR; URINE BILIRUBIN NEGATIVE (NEGATIVE); URINE COLOR YELLOW; URINE GLUCOSE (UA) NEGATIVE (NEGATIVE); URINE KETONE NEGATIVE (NEGATIVE); URINE LEUK ESTERASE NEGATIVE (NEGATIVE); URINE NITRITE NEGATIVE (NEGATIVE); URINE PROTEIN NEGATIVE (NEGATIVE); URINE UROBILINOGEN 0.2 mg/dL (0.2-1.0)
[2020-04-15] MEDS: MELATONIN 5 MG TABLETS PO PRN (21:48)
[2020-04-16] MEDS ORDERED: cefTRIAXone SODIUM 1 GM VIAL ONE (09:18)
[2020-04-16] MEDS ORDERED: PT OWN MED DRAWER 7, Y5N ONE (09:18)
[2020-04-16] MEDS ORDERED: DEXTROSE 5%-WATER - 50 ML IVPB ONE (09:19)
[2020-04-16] MEDS: CEFTRIAXONE 1 GM in DEXTROSE 5%-WATER - 50 ML IVPB SCH (09:27)
[2020-04-16] MEDS: NYSTATIN 100,000 UNIT/GM TOPICAL CREAM 15 GM TUBE TP SCH ×2 (09:27→22:03)
[2020-04-16] MEDS: MULTIVIT-MINERALS ORAL LIQUID PO SCH (09:27)
[2020-04-16] MEDS: POLYETHYLENE GLYCOL 3350 119 GM BTL PO SCH ×2 (09:27→21:50)
[2020-04-16] MEDS: HYDROCORTISONE 2.5% TOPICAL CREAM 30 GM TUBE TP SCH ×2 (09:27→22:02)
[2020-04-16] MEDS: ACETAMINOPHEN 325 MG TABLET (FP) PO PRN (14:20)
[2020-04-16 17:15] LABS: BF WBC & OTHER NUCLEATED CELLS 18571 /mm3; BODY FLUID MONOCYTE 9 %
[2020-04-17] MEDS ORDERED: cefTRIAXone SODIUM 1 GM VIAL ONE (09:23)
[2020-04-17] MEDS ORDERED: DEXTROSE 5%-WATER - 50 ML IVPB ONE (09:23)
[2020-04-17] MEDS: CEFTRIAXONE 1 GM in DEXTROSE 5%-WATER - 50 ML IVPB SCH (10:06)
[2020-04-17] MEDS: MULTIVIT-MINERALS ORAL LIQUID PO SCH (10:06)
[2020-04-17] MEDS: POLYETHYLENE GLYCOL 3350 119 GM BTL PO SCH ×2 (10:07→22:23)
[2020-04-17] MEDS: NYSTATIN 100,000 UNIT/GM TOPICAL CREAM 15 GM TUBE TP SCH ×2 (10:08→22:23)
[2020-04-17] MEDS: HYDROCORTISONE 2.5% TOPICAL CREAM 30 GM TUBE TP SCH ×2 (10:08→22:23)
[2020-04-17] MEDS ORDERED: predniSONE 20 MG TABLET (UD) PO ONE (14:45)
[2020-04-17] MEDS: predniSONE 20 MG TABLET (UD) PO ONE ×2 (15:09→15:12)
[2020-04-17] MEDS: ACETAMINOPHEN 325 MG TABLET (FP) PO PRN (15:12)
[2020-04-17] MEDS ORDERED: PT OWN MED DRAWER 7, Y5N ONE (22:04)
[2020-04-18] MEDS ORDERED: PT OWN MED DRAWER 7, Y5N ONE (09:14)
[2020-04-18] MEDS: MULTIVIT-MINERALS ORAL LIQUID PO SCH (10:14)
[2020-04-18] MEDS: HYDROCORTISONE 2.5% TOPICAL CREAM 30 GM TUBE TP SCH ×2 (10:14→21:51)
[2020-04-18] MEDS: NYSTATIN 100,000 UNIT/GM TOPICAL CREAM 15 GM TUBE TP SCH ×2 (10:14→21:51)
[2020-04-18] MEDS: POLYETHYLENE GLYCOL 3350 119 GM BTL PO SCH ×2 (10:14→21:51)
[2020-04-18] MEDS ORDERED: predniSONE 20 MG TABLET (UD) PO ONE (11:45)
[2020-04-18] MEDS: MELATONIN 5 MG TABLETS PO PRN (21:51)
[2020-04-19] MEDS ORDERED: PT OWN MED DRAWER 7, Y5N ONE (09:26)
[2020-04-19] MEDS: MULTIVIT-MINERALS ORAL LIQUID PO SCH (10:02)
[2020-04-19] MEDS: NYSTATIN 100,000 UNIT/GM TOPICAL CREAM 15 GM TUBE TP SCH ×2 (10:02→21:53)
[2020-04-19] MEDS: POLYETHYLENE GLYCOL 3350 119 GM BTL PO SCH ×2 (10:02→21:53)
[2020-04-19] MEDS: HYDROCORTISONE 2.5% TOPICAL CREAM 30 GM TUBE TP SCH ×2 (10:02→21:59)
[2020-04-19] MEDS: metroNIDAZOLE 250 MG TABLET PO SCH ×2 (15:46→21:59)
[2020-04-19] MEDS: predniSONE 20 MG TABLET (UD) PO SCH (15:46)
[2020-04-19] MEDS: CEFUROXIME AXETIL 500 MG TABLET PO SCH (21:47)
[2020-04-19] MEDS: MELATONIN 5 MG TABLETS PO PRN (21:47)
[2020-04-20] MEDS: metroNIDAZOLE 250 MG TABLET PO SCH ×2 (05:07→14:55)
[2020-04-20 06:09] VITALS: BP 138/60; PULSE 91; TEMP 97.7
[2020-04-20] MEDS: predniSONE 20 MG TABLET (UD) PO SCH (09:32)
[2020-04-20] MEDS: MULTIVIT-MINERALS ORAL LIQUID PO SCH (09:32)
[2020-04-20] MEDS: CEFUROXIME AXETIL 500 MG TABLET PO SCH (09:32)
[2020-04-20] MEDS: NYSTATIN 100,000 UNIT/GM TOPICAL CREAM 15 GM TUBE TP SCH (09:33)
[2020-04-20] MEDS: POLYETHYLENE GLYCOL 3350 119 GM BTL PO SCH (09:33)
[2020-04-20] MEDS: HYDROCORTISONE 2.5% TOPICAL CREAM 30 GM TUBE TP SCH (09:33)
== END 2020-04-20 21:51 | DRG 393 ==
LOC: JER 19:13 → JERBED 04-10 04:00 → J7W 04-10 11:57
PROVIDERS: ADMIT Hospitalist; ATTEND Internal Medicine
PROC: 0S9C3ZX Drainage of Right Knee Joint, Percutaneous Approach, Diagnostic (ICD-10-PCS; principal; 2020-04-16)
DX: K62.89 Other specified diseases of anus and rectum (principal); E43 Unspecified severe protein-calorie malnutrition; N17.9 Acute kidney failure, unspecified; Z68.1 Body mass index [BMI] 19.9 or less, adult; B02.8 Zoster with other complications; I10 Essential (primary) hypertension; E78.5 Hyperlipidemia, unspecified; J45.909 Unspecified asthma, uncomplicated; R62.7 Adult failure to thrive; R19.7 Diarrhea, unspecified; E86.0 Dehydration; R53.1 Weakness; K57.90 Diverticulosis of intestine, part unspecified, without perforation or abscess without bleeding; Z96.642 Presence of left artificial hip joint; Z20.828 Contact with and (suspected) exposure to other viral communicable diseases; R50.9 Fever, unspecified; M19.012 Primary osteoarthritis, left shoulder; M19.011 Primary osteoarthritis, right shoulder; M17.0 Bilateral primary osteoarthritis of knee; K56.41 Fecal impaction; M25.461 Effusion, right knee; M25.462 Effusion, left knee; R26.81 Unsteadiness on feet; Z85.3 Personal history of malignant neoplasm of breast
CPT/HCPCS: 36415; 73030-TC-LT-FY; 73560-TC-RT-FY; 74176-TC; 80048; 80053; 81003; 82272; 83540; 83550; 83605; 83690; 84550; 85025; 85027; 85651; 86225; 86431; 86769; 86850; 86900; 86901; 87040; 87045; 87046; 87070; 87075; 87086; 87205; 87324; 87449; 89060; 93005; 93010; 97116-GP; 97161-GP; 99285-25; C9803; J0131; J1644; J1756; Q9967; U0003

== ENCOUNTER 2020-05-30 15:45 | Inpatient (IN) | payer OTHER, MEDICARE ==
[2020-05-30 17:41] LABS: INR 1.07 (0.83-1.09); PROTHROMBIN TIME (PATIENT) 13.1 SEC (9.7-13.0)
[2020-05-30 17:43] LABS: BASO % 0.9 % (0-2.0); EOS % 0.3 % (0-4.5); HEMATOCRIT 33.8 % (32.4-45.2); MCHC 32.7 g/dl (32.0-36.0); MEAN CELL VOLUME 91.8 fl (80-96); MEAN PLT VOLUME 7.9 fl (7.5-11.1); MONO % 6.8 % (3.8-10.2); PLATELET COUNT 386 K/MM3 (134-434); RBC 3.68 M/mm3 (3.60-5.2); RDW 15.6 % (11.6-15.6); WHITE BLOOD COUNT 7.4 K/mm3 (4.0-10.0)
[2020-05-30 17:44] LABS: ACTIVATED PTT 29.1 SECONDS (25.2-36.5)
[2020-05-30 17:47] LABS: EPI CELLS 11 /uL (0-25.1); HYALINE CASTS 2 /uL (0-3.1); PH,URINE 5.5 (5.0-8.0); URINE APPEARANCE CLEAR; URINE BACTERIA 354 /uL (0-1359); URINE BILIRUBIN NEGATIVE (NEGATIVE); URINE COLOR YELLOW; URINE GLUCOSE (UA) NEGATIVE (NEGATIVE); URINE KETONE TRACE (NEGATIVE); URINE LEUK ESTERASE 2+ (NEGATIVE); URINE NITRITE NEGATIVE (NEGATIVE); URINE PROTEIN NEGATIVE (NEGATIVE); URINE RBC 17 /uL (0-23.9); URINE UROBILINOGEN 0.2 mg/dL (0.2-1.0); URINE WBC 146 /uL (0-25.8)
[2020-05-30] MEDS ORDERED: CEFTRIAXONE 1 GM in DEXTROSE 5%-WATER - 100 ML IVPB ONE (17:56)
[2020-05-30 17:58] LABS: CALCIUM 9.4 mg/dL (8.5-10.1)
[2020-05-30 17:59] LABS: ALBUMIN 3.3 g/dl (3.4-5.0); BLOOD UREA NITROGEN 17.4 mg/dL (7-18); MAGNESIUM 2.2 mg/dL (1.8-2.4)
[2020-05-30] MEDS ORDERED: CEFTRIAXONE 1 GM/50 ML BAG ONE (18:00)
[2020-05-30 18:02] LABS: CREATININE 0.5 mg/dL (0.55-1.3)
[2020-05-30 18:04] LABS: BILIRUBIN,TOTAL 0.4 mg/dL (0.2-1); TOT PROT 6.7 g/dl (6.4-8.2)
[2020-05-30] MEDS ORDERED: SODIUM CHLORIDE 0.9% 1000 ML INFUS.BAG IV ONE (18:07)
[2020-05-30] MEDS: DEXTROSE 5%-NORMAL SALINE 1,000 ML IV SCH (20:12)
[2020-05-30 21:14] LABS: YEAST NEGATIVE (NEGATIVE)
[2020-05-31 01:30] VITALS: BMI 16.2
[2020-05-31] MEDS ORDERED: ACETAMINOPHEN 500 MG TABLET (FP) PO PRN (05:35)
[2020-05-31] MEDS: LISINOPRIL 5 MG TABLET PO SCH (09:07)
[2020-05-31] MEDS: ATENOLOL 25 MG TABLET (FP) PO SCH (09:07)
[2020-05-31] MEDS: CYANOCOBALAMIN 1,000 MCG TABLET (FP) PO SCH (09:14)
[2020-05-31] MEDS: HEPARIN NA (PORCINE) 5,000 UNITS/ML 1ML VIAL SQ SCH ×2 (09:14→21:46)
[2020-05-31 09:21] LABS: BASO % 0.8 % (0-2.0); EOS % 0.6 % (0-4.5); HEMATOCRIT 29.3 % (32.4-45.2); HEMOGLOBIN 9.6 GM/dL (10.7-15.3); LYMPH % 18.8 % (8-40); MCH 30.4 pg (25.7-33.7); MCHC 32.8 g/dl (32.0-36.0); MEAN CELL VOLUME 92.6 fl (80-96); MEAN PLT VOLUME 7.6 fl (7.5-11.1); MONO % 7.5 % (3.8-10.2); NEUT % 72.3 % (42.8-82.8); PLATELET COUNT 313 K/MM3 (134-434); RBC 3.16 M/mm3 (3.60-5.2); RDW 15.6 % (11.6-15.6); WHITE BLOOD COUNT 6.1 K/mm3 (4.0-10.0)
[2020-05-31 09:52] LABS: BLOOD UREA NITROGEN 14.6 mg/dL (7-18)
[2020-05-31 09:53] LABS: CALCIUM 8.3 mg/dL (8.5-10.1)
[2020-05-31 09:56] LABS: PHOSPHOROUS 3.1 mg/dL (2.5-4.9)
[2020-05-31 09:57] LABS: CREATININE 0.4 mg/dL (0.55-1.3)
[2020-05-31 09:58] LABS: BILIRUBIN,TOTAL 0.4 mg/dL (0.2-1)
[2020-05-31 10:12] LABS: ALBUMIN 2.5 g/dl (3.4-5.0)
[2020-05-31] MEDS ORDERED: cefTRIAXone SODIUM 1 GM VIAL ONE (13:38)
[2020-05-31] MEDS ORDERED: DEXTROSE 5%-WATER - 50 ML IVPB ONE (13:38)
[2020-05-31] MEDS: CEFTRIAXONE 1 GM in DEXTROSE 5%-WATER - 50 ML IVPB SCH (13:50)
[2020-05-31] MEDS: DEXTROSE 5%-NORMAL SALINE 1,000 ML IV SCH (21:11)
[2020-06-01] MEDS ORDERED: DEXTROSE 5%-WATER - 50 ML IVPB ONE (09:03)
[2020-06-01] MEDS ORDERED: cefTRIAXone SODIUM 1 GM VIAL ONE (09:03)
[2020-06-01] MEDS: CYANOCOBALAMIN 1,000 MCG TABLET (FP) PO SCH (09:13)
[2020-06-01] MEDS: ATENOLOL 25 MG TABLET (FP) PO SCH (09:13)
[2020-06-01] MEDS: LISINOPRIL 5 MG TABLET PO SCH (09:13)
[2020-06-01] MEDS: HEPARIN NA (PORCINE) 5,000 UNITS/ML 1ML VIAL SQ SCH (09:14)
[2020-06-01] MEDS: CEFTRIAXONE 1 GM in DEXTROSE 5%-WATER - 50 ML IVPB SCH (09:14)
[2020-06-01] MEDS: ENOXAPARIN NA (PORCINE) 40 MG/0.4 ML DISP.SYRIN SQ SCH (14:21)
[2020-06-01] MEDS ORDERED: ONDANSETRON 4 MG/2 ML VIAL IVPUSH ONE (17:23)
[2020-06-01] MEDS: SENNOSIDES 8.6MG TABLET (FP) PO PRN (17:43)
[2020-06-02] MEDS: CYANOCOBALAMIN 1,000 MCG TABLET (FP) PO SCH (11:30)
[2020-06-02] MEDS: ATENOLOL 25 MG TABLET (FP) PO SCH (11:30)
[2020-06-02] MEDS: LISINOPRIL 5 MG TABLET PO SCH (11:30)
[2020-06-02] MEDS: ENOXAPARIN NA (PORCINE) 40 MG/0.4 ML DISP.SYRIN SQ SCH (11:30)
[2020-06-02] MEDS: SENNOSIDES 8.6MG TABLET (FP) PO PRN (20:55)
[2020-06-03] MEDS: ATENOLOL 25 MG TABLET (FP) PO SCH (09:57)
[2020-06-03] MEDS: LISINOPRIL 5 MG TABLET PO SCH (09:57)
[2020-06-03] MEDS: ENOXAPARIN NA (PORCINE) 40 MG/0.4 ML DISP.SYRIN SQ SCH (10:06)
[2020-06-03] MEDS: CYANOCOBALAMIN 1,000 MCG TABLET (FP) PO SCH (10:06)
[2020-06-03] MEDS ORDERED: ARTIFICIAL TEARS (POLYVINYL ALCOHOL) OPTH DROPS OU PRN (11:54)
[2020-06-03] MEDS ORDERED: PT OWN MED DRAWER 7, Y5N ONE (13:14)
[2020-06-04] MEDS: ATENOLOL 25 MG TABLET (FP) PO SCH (09:29)
[2020-06-04] MEDS: ENOXAPARIN NA (PORCINE) 40 MG/0.4 ML DISP.SYRIN SQ SCH (09:29)
[2020-06-04] MEDS: LISINOPRIL 5 MG TABLET PO SCH (09:29)
[2020-06-04] MEDS: CYANOCOBALAMIN 1,000 MCG TABLET (FP) PO SCH (09:29)
[2020-06-04 21:25] VITALS: BP 107/66; PULSE 90; TEMP 98
== END 2020-06-04 21:24 | DRG 640 ==
LOC: JER 15:45 → JERBED 18:51 → J5S 05-31 00:35
PROVIDERS: ADMIT Internal Medicine; ATTEND Internal Medicine
DX: R62.7 Adult failure to thrive (principal); E43 Unspecified severe protein-calorie malnutrition; R64 Cachexia; E87.1 Hypo-osmolality and hyponatremia; Z68.1 Body mass index [BMI] 19.9 or less, adult; L89.152 Pressure ulcer of sacral region, stage 2; I10 Essential (primary) hypertension; E78.5 Hyperlipidemia, unspecified; Z85.3 Personal history of malignant neoplasm of breast; R53.1 Weakness
CPT/HCPCS: 36415; 71045-TC-FY; 80053; 81003; 82550; 83735; 84100; 84484; 85025; 85610; 85730; 87086; 93005; 93010; 97116-GP; 97162-GP; 99285-25; C9803; J1644; U0003; U0005